=== PATIENT | female | born 1960 | race American Indian/Alaskan Native ===

== ENCOUNTER 2020-10-09 18:28 | Inpatient (IN) | payer BC ==
[2020-10-09] MEDS ORDERED: IPRATROPIUM 0.02% NEBU 2.5 ML IH ONE (21:48)
[2020-10-09] MEDS ORDERED: LEVALBUTEROL 0.63 MG/3 ML NEBU IH ONE (21:48)
[2020-10-09] MEDS ORDERED: methylPREDNISolone Sod Succinate 125 MG/2 ML INJ IV ONE (21:50)
[2020-10-09] MEDS ORDERED: MAGNESIUM SULFATE 2 GM/50 ML BAG IV ONE (21:50)
[2020-10-09] MEDS ORDERED: ACETAMINOPHEN 500 MG TAB PO ONE (21:50)
[2020-10-09 21:57] LABS: Basophils % (Auto) 0.1 % (0.0-1.8); Hematocrit 39.1 % (30.3-42.9); Hemoglobin 13.4 gm/dl (10.1-14.3); Lymphocytes # (Auto) 0.5 K/mm3 (1.2-5.4); Lymphocytes % (Auto) 15.8 % (13.4-35.0); Mean Corpuscular HGB Conc 34 % (30-34); Mean Corpuscular Volume 95 fl (79-97); Monocytes # (Auto) 0.4 K/mm3 (0.0-0.8); Platelet Count 219 K/mm3 (140-440); Red Blood Count 4.12 M/mm3 (3.65-5.03); Red Cell Distribution Width 13.4 % (13.2-15.2)
[2020-10-09 21:58] LABS: Alanine Aminotransferase 25 units/L (7-56); Albumin 4.1 g/dL (3.9-5); BUN/Creatinine Ratio 19; Blood Urea Nitrogen 15 mg/dL (7-17); Calcium 9.4 mg/dL (8.4-10.2); Hemolysis Index 7
--- NOTE | 2020-10-09 22:03 | XRay Report ---
CHEST 2 VIEWS INDICATION / CLINICAL INFORMATION: sob,wheezing and cough. COMPARISON: 07/11/2012 FINDINGS: SUPPORT DEVICES: None. HEART / MEDIASTINUM: Stable. LUNGS / PLEURA: Interval development of bilateral pleural effusions and associated lung base atelecta sis. No pneumothorax. ADDITIONAL FINDINGS: No significant additional findings. IMPRESSION: 1. Interval development of bilateral pleural effusions with associated compressive atelectasis. Signer Name: Angelito Back MD Signed: 10/09/2020 9:58 PM Workstation Name: [id number]
--- NOTE | 2020-10-09 23:00 | Emergency Department Report ---
ED Shortness of Breath HPI - General Chief Complaint: Dyspnea/Respdistress Stated Complaint: ASTHMA/COVID SYM Source: patient Mode of arrival: Ambulatory Limitations: No Limitations - History of Present Illness Initial Comments: Patient is a 60-year-old -[place] female with a history of asthma who presents to the ED with acute onset persistent shortness of breath with wheezing chest tightness for the last 3 days despite using her albuterol inhaler and nebulizers at home. Patient states that the cough is productive of mild yellowish-greenish phlegm and is worse at night when she lays down to sleep. Patient denies chest pain, dizziness, syncope, fever, chills, nausea and vomiting, diarrhea, sore throat, nasal and sinus congestion, back pain, abdominal pain, palpitations or change in vision. MD Complaint: shortness of breath, cough, "asthma attack" -: Sudden, days(s) (3) Severity: severe Pain Scale: 7 Quality: aching, other (chest tightness) Consistency: constant Improves With: nothing Worsens With: lying flat Known History Of: asthma Context: recent URI Associated Symptoms: denies other symptoms, cough, sputum production Treatments Prior to Arrival: bronchodilator - Related Data Home Oxygen Therapy: No Allergies Allergy/AdvReac Type Severity Reaction Status Date / Time No Known Allergies Allergy Unverified 10/09/20 20:29 ED Review of Systems ROS: Stated complaint: ASTHMA/COVID SYM Other details as noted in HPI Constitutional: denies: chills, fever Eyes: denies: eye pain, eye discharge, vision change ENT: denies: ear pain, throat pain, dental pain, hearing loss, congestion Respiratory: cough, shortness of breath, wheezing Cardiovascular: denies: chest pain, palpitations Endocrine: no symptoms reported Gastrointestinal: denies: abdominal pain, nausea, vomiting, diarrhea Genitourinary: denies: urgency, dysuria, discharge Musculoskeletal: denies: back pain, joint swelling, arthralgia Skin: denies: rash, lesions Neurological: denies: headache, weakness, paresthesias Psychiatric: denies: anxiety, depression Hematological/Lymphatic: denies: easy bleeding, easy bruising ED Past Medical Hx - Past Medical History Previous Medical History?: Yes Hx Asthma: Yes - Social History Smoking Status: Former Smoker Substance Use Type: None ED Physical Exam - General Limitations: No Limitations General appearance: alert, in no apparent distress - Head Head exam: Present: atraumatic, normocephalic, normal inspection - Eye Eye exam: Present: normal appearance, PERRL, EOMI Pupils: Present: normal accommodation - ENT ENT exam: Present: normal exam, normal orophraynx, mucous membranes moist, TM's normal bilaterally, normal external ear exam - Neck Neck exam: Present: normal inspection, full ROM - Respiratory Respiratory exam: Present: wheezes (Mildly diffuse coarse wheezes throughout). Absent: respiratory distress, rales, rhonchi, chest wall tenderness, accessory muscle use, decreased breath sounds, prolonged expiratory - Cardiovascular Cardiovascular Exam: Present: normal rhythm, tachycardia, normal heart sounds. Absent: systolic murmur, diastolic murmur, rubs, gallop - GI/Abdominal GI/Abdominal exam: Present: soft, normal bowel sounds. Absent: distended, tenderness, guarding, rebound, hyperactive bowel sounds, hypoactive bowel sounds, organomegaly - Extremities Exam Extremities exam: Present: normal inspection, full ROM, normal capillary refill - Back Exam Back exam: Present: normal inspection, full ROM. Absent: tenderness, CVA tenderness (R), CVA tenderness (L), muscle spasm, paraspinal tenderness, vertebral tenderness - Neurological Exam Neurological exam: Present: alert, oriented X3, CN II-XII intact, normal gait, reflexes normal - Psychiatric Psychiatric exam: Present: normal affect, normal mood - Skin Skin exam: Present: warm, dry, intact, normal color. Absent: rash ED Course Vital Signs 10/09/20 20:25 Temperature 99.1 F Pulse Rate 108 H Respiratory 18 Rate Blood Pressure 143/79 O2 Sat by Pulse 93 Oximetry ED Medical Decision Making - Lab Data Result diagrams: 10/09/20 21:10 10/10/20 01:47 - Radiology Data Findings [facility] [address] [place] [address] XRay Report Signed Patient: BERNARDA WILHELM MR #: [id number] : 1960 Acct:[id number] Age/Sex: 60 / F ADM Date: 10/09/20 Loc: ED Attending Dr: Ordering Physician: Gloria De La Torre MD Date of Service: 10/09/20 Procedure(s): XR chest routine 2V Accession Number(s): [id number] cc: Gloria De La Torre MD Fluoro Time In Minutes: CHEST 2 VIEWS INDICATION / CLINICAL INFORMATION: sob,wheezing and cough. COMPARISON: 07/11/2012 FINDINGS: SUPPORT DEVICES: None. HEART / MEDIASTINUM: Stable. LUNGS / PLEURA: Interval development of bilateral pleural effusions and associated lung base atelectasis. No pneumothorax. ADDITIONAL FINDINGS: No significant additional findings. IMPRESSION: 1. Interval development of bilateral pleural effusions with associated compressive atelectasis. Signer Name: Angelito Gaston MD Signed: 10/09/2020 9:58 PM Workstation Name: [id number] Transcribed By: CH Dictated By: ANGELITO GASTON Electronically Authenticated By: ANGELITO GASTON Signed Date/Time: 10/09/202157 DD/ 56 TD/TT: -- Findings [facility] [address] [place] [address] Cat Scan Report Signed Patient: BERNARDA WILHELM MR #: [id number] : 1960 Acct:[id number] Age/Sex: 60 / F ADM Date: 10/09/20 Loc: ED Attending Dr: Ordering Physician: AFSHAN SUTTON Date of Service: 10/10/20 Procedure(s): CT angio chest Accession Number(s): [id number] cc: AFSHAN SUTTON CTA CHEST WITH IV CONTRAST INDICATION: Shortness of breath TECHNIQUE: Axial CT images were obtained through the chest after injection of IV contrast. Coronal oblique 2- D reconstruction images were produced. 3 plane MIP reconstruction images were produced at an independent workstation. All CTs at this facility utilize dose reduction techniques including automated exposure control, iterative reconstruction and weight based dosing when appropriate to reduce patient radiation dose to as low as reasonable achievable. COMPARISON: Chest radiograph, 10/09/2020 FINDINGS: No filling defects are visualized within the central or segmental pulmonary arteries to suggest pulmonary embolism. The heart is normal in size. The thoracic aorta is normal in caliber. Evaluation of the lung parenchyma demonstrates faint bilateral interstitial prominence. No focal airspace consolidation or pleural effusion is visualized. Limited imaging of the upper abdomen demonstrates no evidence of acute abnormality. Bones and soft tissues: There are mild bony degenerative changes of the thoracic spine. Soft tissue structures appear normal. IMPRESSION: 1. No evidence of pulmonary embolism. 2. Faint bilateral interstitial thickening which is a nonspecific finding. This could be associated with atypical infectious process or mild pulmonary edema. Please correlate with patient's clinical circumstances. Signer Name: Geri Rosas MD Signed: 10/10/2020 2:32 AM Workstation Name: [id number] Transcribed By: EB Dictated By: Geri Rosas MD Electronically Authenticated By: Geri Rosas MD Signed Date/Time: 10/10/20231 DD/ 6 TD/TT: - Medical Decision Making This is a 60-year-old -[place] female with a history of asthma who presents to the ED with acute onset persistent shortness of breath with wheezing chest tightness for the last 3 days despite using her albuterol inhaler and nebulizers at home. Patient states that the cough is productive of mild yellowish-greenish phlegm and is worse at night when she lays down to sleep. In the ED, patient is alert and oriented x3 and is not in distress. Patient is 72 tachycardic and afebrile in triage. Patient was treated in the ED with Xopenex and ipratropium, also given Solu-Medrol 25 mg IV x1 and treated for pain. Chest x-ray shows interval development of bilateral pleural effusions with associated compressive atelectasis. No pneumothorax. Lab test results were reviewed and are all nonactionable. On reevaluation, patient's wheezing improved significantly but on ambulation in the ED, patient became hypoxic with oxygen saturation of 87% in room air. Patient was given more nebulizer treatment in the ED and more lab tests were ordered including lactic acid, COVID-[address] order panel [address] a CT of the chest. Patient also received empirical treatment with Rocephin 1 g IV and azithromycin [address] of the chest showed no evidence of pulmonary embolism. It however showed a faint bilateral interstitial thickening which is a nonspecific finding. This could be associated with atypical infectious process or mild pulmonary edema. Please correlate with patient's clinical circumstances. These findings were discussed with the hospitalist physician on-call who admitted the patient to the hospital for further evaluation and treatment. - Differential Diagnosis Pneumonia; Asthma; Bronchitis; URI; Covid-19; Hypoxia Critical Care Time: Yes Critical care time in (mins) excluding proc time.: 45 Critical care attestation.: If time is entered above; I have spent that time in minutes in the direct care of this critically ill patient, excluding procedure time. ED Disposition Clinical Impression: Shortness of breath, Acute bronchitis with asthma with acute exacerbation, Suspected COVID-19 virus infection, Hypoxia Community acquired pneumonia Qualifiers: Laterality: unspecified laterality Qualified Code(s): J18.9 - Pneumonia, unspecified organism Disposition: OP ADMIT IP TO THIS HOSP Is pt being admited?: Yes Does the pt Need Aspirin: Yes Condition: Stable Instructions: Acute Bronchitis (ED), Bacterial Pneumonia (ED) Referrals: PRIMARY CARE, [Primary Care Provider] - 3-5 Days Time of Disposition: 03:24 Print Language: SOUTH KOREAN
[2020-10-09] MEDS ORDERED: cefTRIAXone/NS 1 GM/50 ML 1 GM/50 ML BAG IV ONE (23:01)
[2020-10-09] MEDS ORDERED: AZITHROMYCIN 250 MG TAB PO ONE (23:01)
[2020-10-10] MEDS ORDERED: IPRATROPIUM 0.02% NEBU 2.5 ML IH ONE (01:12)
[2020-10-10] MEDS ORDERED: ALBUTEROL 2.5 MG/3 ML NEBU IH ONE (01:12)
[2020-10-10] MEDS ORDERED: dexAMETHasone 20 MG/5 ML VIAL IV ONE (01:14)
--- NOTE | 2020-10-10 02:37 | Cat Scan Report ---
CTA CHEST WITH IV CONTRAST INDICATION: Shortness of breath TECHNIQUE: Axial CT images were obtained through the chest after injection of IV contrast. Coronal oblique 2-D reconstruction images were produced. 3 plane MIP reconstruction images were produced at an [employer] workstation. All CTs at this facility utilize dose reduction techniques including automated expos ure control, iterative reconstruction and weight based dosing when appropriate to reduce patient radi ation dose to as low as reasonable achievable. COMPARISON: Chest radiograph, 10/09/2020 FINDINGS: No filling defects are visualized within the central or segmental pulmonary arteries to suggest pulmo nary embolism. The heart is normal in size. The thoracic aorta is normal in caliber. Evaluation of th e lung parenchyma demonstrates faint bilateral interstitial prominence. No focal airspace consolidati on or pleural effusion is visualized. Limited imaging of the upper abdomen demonstrates no evidence of acute abnormality. Bones and soft tissues: There are mild bony degenerative changes of the thoracic spine. Soft tissue s tructures appear normal. IMPRESSION: 1. No evidence of pulmonary embolism. 2. Faint bilateral interstitial thickening which is a nonspecific finding. This could be associated w ith atypical infectious process or mild pulmonary edema. Please correlate with patient's clinical cir cumstances. Signer Name: Geri Rosas MD Signed: 10/10/2020 2:32 AM Workstation Name: [id number]
[2020-10-10] MEDS ORDERED: ONDANSETRON 4 MG/2 ML INJ IV PRN (03:23)
[2020-10-10] MEDS ORDERED: ASPIRIN 81 MG TAB CHEW PO ONE (03:29)
[2020-10-10 05:13] LABS: C-Reactive Protein 4.2 mg/dL (0.00-1.30)
[2020-10-10] MEDS ORDERED: MAGNESIUM HYDROXIDE (MOM) ORAL LIQD UDC PO PRN (05:28)
[2020-10-10] MEDS ORDERED: MORPHINE 2 MG/1 ML INJ IV PRN (05:28)
--- NOTE | 2020-10-10 05:40 | History and Physical Report ---
History of Present Illness Date of examination: 10/10/20 Date of admission: 10/10/20 03:23 Chief complaint: Shortness of Breath History of present illness: 89-year-old -[place] female with known history of asthma presenting to the emergency room today complaining of shortness of breath which has been ongoing for about 3 days. She has also had some chest tightness but denies any pain. She has used albuterol inhaler nebulizing treatments at home without any significant improvement. Patient has had some cough which is productive for some mild yellowish to greenish sputum. She denies any sick contacts and no recent travel. She denies any contact with anyone with COVID-19. She denies any fever or chills, no nausea vomiting, no sore throat, no abdominal pain, no hematuria or dysuria. However she indicates she has had some changes in taste sensation and has been having some generalized body aches and pain. Work-up in the emergency room today CT angiogram of the chest reveals: Faint bilateral interstitial thickening which is a nonspecific finding. This could be associated with atypical infectious process or mild pulmonary edema. Patient admitted with asthma exacerbation and or possible underlying pneumonia. We will also rule out for COVID-19 Past History Past Medical History: other (Asthma) Past Surgical History: No surgical history Social history: smoking (Former Smoker) Family history: no significant family history Medications and Allergies Allergies Allergy/AdvReac Type Severity Reaction Status Date / Time No Known Allergies Allergy Unverified 10/09/20 20:29 Active Meds: Active Medications Acetaminophen (Acetaminophen 325 Mg Tab) 650 mg PO Q4H PRN PRN Reason: Pain MILD(1-3)/Fever >100.5/MARCIAL Albuterol/Ipratropium (Ipratropium/Albuterol Sulfate 3 Ml Ampul.Neb) 1 ampul IH Q6HRT [facility]ER[facility] Enoxaparin Sodium (Enoxaparin 40 Mg/0.4 Ml Inj) 40 mg SUB-Q QDAY@2200 BERTHA; Protocol Ceftriaxone Sodium (Rocephin/Ns 2 Gm/100 Ml) 2 gm in 100 mls @ 200 mls/hr IV Q24HR [facility]; Protocol Azithromycin 500 mg/ Sodium (Chloride) 250 mls @ 250 mls/hr IV Q24HR [facility]; Protocol Magnesium Hydroxide (Magnesium Hydroxide (Mom) Oral Liqd Udc) 30 ml PO Q4H PRN PRN Reason: Constipation Methylprednisolone Sodium Succinate (Methylprednisolone Sod Succinate 40 Mg/1 Ml Inj) 40 mg IV Q8HR [facility]ER[facility] Morphine Sulfate (Morphine 2 Mg/1 Ml Inj) 2 mg IV Q4H PRN PRN Reason: Pain, Moderate (4-6) Ondansetron HCl (Ondansetron 4 Mg/2 Ml Inj) 4 mg IV Q8H PRN PRN Reason: Nausea And Vomiting Sodium Chloride (Sodium Chloride 0.9% 10 Ml Flush Syringe) 10 ml IV BID BERTHA Sodium Chloride (Sodium Chloride 0.9% 10 Ml Flush Syringe) 10 ml IV PRN PRN PRN Reason: LINE FLUSH Sodium Chloride (Sodium Chloride 0.9% 10 Ml Flush Syringe) 10 ml IV BID BERTHA Sodium Chloride (Sodium Chloride 0.9% 10 Ml Flush Syringe) 10 ml IV PRN PRN PRN Reason: LINE FLUSH Review of Systems Constitutional: malaise, poor appetite, other (Loss of taste), no fever, no chills Ears, nose, mouth and throat: no nasal discharge, no swelling in mouth Cardiovascular: no chest pain, no palpitations Respiratory: cough, shortness of breath, wheezing Gastrointestinal: no abdominal pain, no nausea, no vomiting, no diarrhea Genitourinary Female: pelvic pain, no flank pain, no dysuria, no hematuria Musculoskeletal: no neck pain, no low back pain Integumentary: no rash, no pruritis Neurological: no headaches, no confusion Psychiatric: no anxiety, no depression Exam - Constitutional Vitals: Temp Pulse Resp BP Pulse Ox 99.1 F 108 H 18 143/79 93 10/09/20 20:25 10/09/20 20:25 10/09/20 20:25 10/09/20 20:25 10/09/20 20:25 General appearance: Present: no acute distress, well-nourished - EENT Eyes: Present: PERRL, EOM intact. Absent: scleral icterus ENT: hearing intact, clear oral mucosa, dentition normal - Neck Neck: Present: supple, normal ROM - Respiratory Respiratory effort: normal Respiratory: bilateral: wheezing - Cardiovascular Rhythm: regular Heart Sounds: Present: S1 & S2. Absent: gallop, systolic murmur, diastolic murmur, rub - Extremities Extremities: no ischemia, pulses intact, pulses symmetrical, No edema, Full ROM Peripheral Pulses: within normal limits - Abdominal General gastrointestinal: Present: soft, non-tender, non-distended, normal bowel sounds. Absent: mass - Integumentary Integumentary: Present: clear, warm, dry. Absent: rash - Musculoskeletal Musculoskeletal: strength equal bilaterally - Psychiatric Psychiatric: appropriate mood/affect, intact judgment & insight, memory intact, cooperative - Neurologic Neurologic: CNII-XII intact, no focal deficits, moves all extremities HEART Score - HEART Score Troponin: Troponin T < 0.010 ng/mL (0.00-0.029) 10/09/20 23:32 Results - Labs CBC & Chem 7: 10/09/20 21:10 10/10/20 01:47 Labs: Abnormal lab results 10/09/20 10/09/20 10/10/20 Range/Units 21:10 21:10 01:47 WBC 3.4 L (4.5-11.0) K/mm3 [place] % (Auto) 11.0 H (0.0-7.3) % Lymph # (Auto) 0.5 L (1.2-5.4) K/mm3 Seg Neutrophils % 73.1 H (40.0-70.0) % Glucose 107 H 115 H (65-100) mg/dL Ferritin (10.0-200.0) ng/mL Lactate Dehydrogenase 296 H (91-180) units/L C-Reactive Protein 4.20 H (0.00-1.30) mg/dL 10/10/20 Range/Units 01:47 WBC (4.5-11.0) K/mm3 [place]ina % (Auto) (0.0-7.3) % Lymph # (Auto) (1.2-5.4) K/mm3 Seg Neutrophils % (40.0-70.0) % Glucose (65-100) mg/dL Ferritin 844.9 H (10.0-200.0) ng/mL Lactate Dehydrogenase (91-180) units/L C-Reactive Protein (0.00-1.30) mg/dL Assessment and Plan - Patient Problems (1) Acute bronchitis with asthma with acute exacerbation Current Visit: Yes Status: Acute Plan to address problem: Patient placed on nebulizing treatments and IV steroid. We will keep O2 saturation greater or equal to 94%. (2) Community acquired pneumonia Current Visit: Yes Status: Acute Qualifiers: Laterality: unspecified laterality Qualified Code(s): J18.9 - Pneumonia, unspecified organism Plan to address problem: Patient placed on empiric IV antibiotics. We will appreciate infectious disease evaluation. (3) Hypoxia Current Visit: Yes Status: Acute Plan to address problem: Possibly secondary to the asthma exacerbation versus underlying pneumonia. (4) Suspected COVID-19 virus infection Current Visit: Yes Status: Acute Plan to address problem: Patient placed on isolation precautions. We await COVID-19 testing. (5) DVT prophylaxis Current Visit: Yes Status: Acute Plan to address problem: We will place on anticoagulation with subcutaneous Lovenox. (6) Full code status Current Visit: Yes Status: Acute
[2020-10-10] MEDS ORDERED: ASPIRIN 81 MG TAB CHEW ONE (06:51)
[2020-10-10] MEDS: methylPREDNISolone Sod Succinate 40 MG/1 ML INJ IV SCH ×3 (06:57→21:12)
[2020-10-10] MEDS: IPRATROPIUM/ALBUTEROL SULFATE 3 ML AMPUL.NEB IH SCH ×3 (09:01→20:56)
[2020-10-10] MEDS ORDERED: AZITHROMYCIN 500 MG in SODIUM CHLORIDE 0.9% 250ML 250 ML IV SCH (10:00)
[2020-10-10] MEDS: cefTRIAXone/NS 2 GM/100 ML 2 GM/100 ML BAG IV SCH (10:33)
--- NOTE | 2020-10-10 11:34 | Consultation ---
History of Present Illness - Reason for Consult Consult date: 10/10/20 Asthma exacerbation rule out COVID-19 Requesting physician: RAGHAV QUINTANILLA - History of Present Illness 60 years old female with history of asthma, admitted on secondary to 3-day history of chest tightness, cough with yellowish sputum.. Patient felt it was asthma exacerbation, she was using her inhaler without any improvement. Patient denies any exposure to COVID-19. On arrival, initial temperature 99.1, HR 108, RR 18, O2 sat 93%, BP 143/79. Initial WBC 3.4. D-dimer 230. Ferritin 944. Procalcitonin negative. CRP 4.2. CTA shows bilateral interstitial thickening, no pulmonary embolism. Review of Systems: reviewed ED and H&P notes. Deferred to prevent COVID-19 transmission. Past History Past Medical History: other (Asthma) Past Surgical History: No surgical history Social history: smoking (Former Smoker) Family history: no significant family history Medications and Allergies Allergies Allergy/AdvReac Type Severity Reaction Status Date / Time No Known Allergies Allergy Unverified 10/09/20 20:29 Active Meds: Active Medications Acetaminophen (Acetaminophen 325 Mg Tab) 650 mg PO Q4H PRN PRN Reason: Pain MILD(1-3)/Fever >100.5/MARCIAL Albuterol/Ipratropium (Ipratropium/Albuterol Sulfate 3 Ml Ampul.Neb) 1 ampul IH Q6HRT [facility] Last Admin: 10/10/20 09:01 Dose: 1 ampul Documented by: Enoxaparin Sodium (Enoxaparin 40 Mg/0.4 Ml Inj) 40 mg SUB-Q QDAY@2200 BERTHA; Protocol Ceftriaxone Sodium (Rocephin/Ns 2 Gm/100 Ml) 2 gm in 100 mls @ 200 mls/hr IV Q24HR [facility]ERTHA; Protocol Last Admin: 10/10/20 10:33 Dose: 200 mls/hr Documented by: Azithromycin 500 mg/ Sodium (Chloride) 250 mls @ 250 mls/hr IV Q24HR BERTHA; Protocol Stop: 10/13/20 10:59 Last Admin: 10/10/20 10:33 Dose: 250 mls/hr Documented by: Magnesium Hydroxide (Magnesium Hydroxide (Mom) Oral Liqd Udc) 30 ml PO Q4H PRN PRN Reason: Constipation Methylprednisolone Sodium Succinate (Methylprednisolone Sod Succinate 40 Mg/1 Ml Inj) 40 mg IV Q8HR [facility] Last Admin: 10/10/20 06:57 Dose: 40 mg Documented by: Morphine Sulfate (Morphine 2 Mg/1 Ml Inj) 2 mg IV Q4H PRN PRN Reason: Pain, Moderate (4-6) Ondansetron HCl (Ondansetron 4 Mg/2 Ml Inj) 4 mg IV Q8H PRN PRN Reason: Nausea And Vomiting Sodium Chloride (Sodium Chloride 0.9% 10 Ml Flush Syringe) 10 ml IV BID [facility] Last Admin: 10/10/20 06:59 Dose: 10 ml Documented by: Sodium Chloride (Sodium Chloride 0.9% 10 Ml Flush Syringe) 10 ml IV PRN PRN PRN Reason: LINE FLUSH Physical Examination - Physical Exam Narrative exam: Physical Exam: reviewed ED and hospitalist notes. Deferred to prevent COVID-19 transmission. - Constitutional Vitals: Vital Signs Temp Pulse Resp BP Pulse Ox 99.1 F 108 H 18 143/79 93 10/09/20 20:25 10/09/20 20:25 10/09/20 20:25 10/09/20 20:25 10/09/20 20:25 Temperature -Last 24 Hours Temperature 99.1 F Results - Labs CBC & Chem 7: 10/09/20 21:10 10/10/20 01:47 Labs: Abnormal lab results 10/09/20 10/09/20 10/10/20 Range/Units 21:10 21:10 01:47 WBC 3.4 L (4.5-11.0) K/mm3 [place] % (Auto) 11.0 H (0.0-7.3) % Lymph # (Auto) 0.5 L (1.2-5.4) K/mm3 Seg Neutrophils % 73.1 H (40.0-70.0) % Glucose 107 H 115 H (65-100) mg/dL Ferritin (10.0-200.0) ng/mL Lactate Dehydrogenase 296 H (91-180) units/L C-Reactive Protein 4.20 H (0.00-1.30) mg/dL 10/10/20 Range/Units 01:47 WBC (4.5-11.0) K/mm3 [place] % (Auto) (0.0-7.3) % Lymph # (Auto) (1.2-5.4) K/mm3 Seg Neutrophils % (40.0-70.0) % Glucose (65-100) mg/dL Ferritin 844.9 H (10.0-200.0) ng/mL Lactate Dehydrogenase (91-180) units/L C-Reactive Protein (0.00-1.30) mg/dL Assessment and Plan Cultures: Blood culture pending SARS CoV2 PCR pending Assessment: 60 years old female with history of asthma, admitted on secondary to 3-day history of chest tightness, cough with yellowish sputum: #Asthma exacerbation: Patient was using her inhaler without any improvement. #Early viral pneumonia: Should rule out COVID-19. Noted elevated ferritin, CRP and D-dimer. Procalcitonin normal. Mild hypoxia 93%. CTA shows no pulmonary embolism. Recommendations: Follow-up SARS-CoV-2 PCR Continue steroids Is further hypoxia and SARS-CoV-2 PCR positive, start remdesivir for 5 days Monitor inflammatory markers - ferritin, Ddimer, CRP, LDH Continue ceftriaxone and azithromycin Continue anticoagulation per System Protocol Prone positioning as possible All laboratory, cultures and imaging were reviewed. Will follow Hilary Lao MD Infectious Diseases [facility] M [phone] O [phone]
--- NOTE | 2020-10-10 16:00 | Progress Note ---
Assessment and Plan Assessment and plan: --COVID-19 virus infection/positive test Current Visit: Yes Status: Acute Plan to address problem: Droplet and contact isolation IV steroids, IV remdesivir, Inflammatory markers ID already evaluated, oxygen titrate O2 sats to more than 90% Resting room air and ambulatory room air O2 evaluation --Acute bronchitis with asthma with acute exacerbation Current Visit: Yes Status: Acute Plan to address problem: Patient placed on nebulizing treatments and IV steroid. We will keep O2 saturation greater or equal to 94%. --Community acquired pneumonia Current Visit: Yes Status: Acute Plan to address problem: Patient placed on empiric IV antibiotics. We will appreciate infectious disease evaluation. --Hypoxia; Current Visit: Yes Status: Acute Plan to address problem: Possibly secondary to the asthma exacerbation versus underlying pneumonia. --DVT prophylaxis Current Visit: Yes Status: Acute Plan to address problem: We will place on anticoagulation with subcutaneous Lovenox. --Full code status Current Visit: Yes Status: Acute --obesity; BMI 34.5 Patient needs weight reduction when medically stable We will closely monitor the patient and adjust the management as needed History Interval history: I have seen and examined the patient at the bedside Patient's chart and medications reviewed Patient is admitted as PUI in isolation [place] PCR positive Patient complains of generalized weakness Vital signs noted Hospitalist Physical - Constitutional Vitals: Temp Pulse Resp BP Pulse Ox 99.1 F 108 H 18 143/79 93 10/09/20 20:25 10/09/20 20:25 10/09/20 20:25 10/09/20 20:25 10/09/20 20:25 General appearance: Present: no acute distress, well-nourished - EENT Eyes: Present: PERRL, EOM intact - Neck Neck: Present: supple, normal ROM - Respiratory Respiratory effort: normal Respiratory: bilateral: diminished, rhonchi, negative: rales, wheezing - Cardiovascular Rhythm: regular Heart Sounds: Present: S1 & S2 - Extremities Extremities: no ischemia, No edema - Abdominal General gastrointestinal: soft, non-tender, non-distended, normal bowel sounds - Integumentary Integumentary: Present: clear, warm - Psychiatric Psychiatric: appropriate mood/affect, cooperative - Neurologic Neurologic: CNII-XII intact, moves all extremities HEART Score - HEART Score Troponin: Troponin T < 0.010 ng/mL (0.00-0.029) 10/09/20 23:32 Results - Labs CBC & Chem 7: 10/09/20 21:10 10/10/20 01:47 Labs: Laboratory Last Values WBC 3.4 K/mm3 (4.5-11.0) L 10/09/20 21:10 RBC 4.12 M/mm3 (3.65-5.03) 10/09/20 21:10 Hgb 13.4 gm/dl (10.1-14.3) 10/09/20 21:10 Hct 39.1 % (30.3-42.9) 10/09/20 21:10 MCV 95 fl (79-97) 10/09/20 21:10 MCH 32 pg (28-32) 10/09/20 21:10 MCHC 34 % (30-34) 10/09/20 21:10 RDW 13.4 % (13.2-15.2) 10/09/20 21:10 Plt Count 219 K/mm3 (140-440) 10/09/20 21:10 Lymph % (Auto) 15.8 % (13.4-35.0) 10/09/20 21:10 Taney % (Auto) 11.0 % (0.0-7.3) H 10/09/20 21:10 Eos % (Auto) 0.0 % (0.0-4.3) 10/09/20 21:10 Baso % (Auto) 0.1 % (0.0-1.8) 10/09/20 21:10 Lymph # (Auto) 0.5 K/mm3 (1.2-5.4) L 10/09/20 21:10 Taney # (Auto) 0.4 K/mm3 (0.0-0.8) 10/09/20 21:10 Eos # (Auto) 0.0 K/mm3 (0.0-0.4) 10/09/20 21:10 Baso # (Auto) 0.0 K/mm3 (0.0-0.1) 10/09/20 21:10 Seg Neutrophils % 73.1 % (40.0-70.0) H 10/09/20 21:10 Seg Neutrophils # 2.5 K/mm3 (1.8-7.7) 10/09/20 21:10 D-Dimer 230.21 ng/mlDDU (0-234) 10/10/20 01:47 Sodium 138 mmol/L (137-145) 10/09/20 21:10 Potassium 3.8 mmol/L (3.6-5.0) 10/09/20 21:10 Chloride 101.3 mmol/L (98-107) 10/09/20 21:10 Carbon Dioxide 28 mmol/L (22-30) 10/09/20 21:10 Anion Gap 13 mmol/L 10/09/20 21:10 BUN 15 mg/dL (7-17) 10/09/20 21:10 Creatinine 0.8 mg/dL (0.6-1.2) 10/09/20 21:10 Estimated GFR > 60 ml/min 10/09/20 21:10 BUN/Creatinine Ratio 19 % 10/09/20 21:10 Glucose 115 mg/dL (65-100) H 10/10/20 01:47 Lactic Acid 1.70 mmol/L (0.7-2.0) 10/09/20 23:32 Calcium 9.4 mg/dL (8.4-10.2) 10/09/20 21:10 Ferritin 844.9 ng/mL (10.0-200.0) H 10/10/20 01:47 Total Bilirubin 0.50 mg/dL (0.1-1.2) 10/09/20 21:10 AST 30 units/L (5-40) 10/09/20 21:10 ALT 25 units/L (7-56) 10/09/20 21:10 Alkaline Phosphatase 57 units/L (35-129) 10/09/20 21:10 Lactate Dehydrogenase 296 units/L (91-180) H 10/10/20 01:47 Troponin T < 0.010 ng/mL (0.00-0.029) 10/09/20 23:32 C-Reactive Protein 4.20 mg/dL (0.00-1.30) H 10/10/20 01:47 NT-Pro-B Natriuret Pep 41.99 pg/mL (0-900) 10/09/20 23:32 Total Protein 7.7 g/dL (6.3-8.2) 10/09/20 21:10 Albumin 4.1 g/dL (3.9-5) 10/09/20 21:10 Albumin/Globulin Ratio 1.1 % 10/09/20 21:10 Procalcitonin < 0.05 ng/mL (<0.15) 10/10/20 01:47 Coronavirus (PCR) Positive (Negative) A 10/10/20 08:40 Microbiology: Microbiology 10/09/20 23:32 Peripheral/Venous Blood Culture - Preliminary Culture in Progress 10/10/20 00:06 Peripheral/Venous Blood Culture - Preliminary Culture in Progress Watkins/IV: IV Catheter Type [Right INT / Saline Lock Antecubital] Active Medications - Current Medications Current Medications: Generic Name Dose Route Start Last Admin Trade Name Freq PRN Reason Stop Dose Admin Acetaminophen 650 mg 10/10/20 03:23 Acetaminophen 325 Mg Tab PO Q4H PRN Pain MILD(1-3)/Fever >100.5/MARCIAL Albuterol/Ipratropium 1 ampul 10/10/20 08:00 10/10/20 09:01 Ipratropium/Albuterol Sulfate 3 Ml Ampul.Neb IH 1 ampul Q6HRT BERTHA Administration Enoxaparin Sodium 40 mg 10/10/20 22:00 Enoxaparin 40 Mg/0.4 Ml Inj SUB-Q QDAY@2200 BERTHA Protocol Ceftriaxone Sodium 2 gm in 100 mls @ 200 mls/hr 10/10/20 10:00 10/10/20 10:33 Rocephin/Ns 2 Gm/100 Ml IV 200 mls/hr Q24HR BERTHA Administration Protocol Azithromycin 500 mg/ Sodium 250 mls @ 250 mls/hr 10/10/20 10:00 10/10/20 10:33 Chloride IV 10/13/20 10:59 250 mls/hr Q24HR BERTHA Administration Protocol REMDESIVIR 200 mg/ Sodium 250 mls @ 500 mls/hr 10/10/20 15:58 Chloride IV 10/10/20 16:27 ONCE ONE REMDESIVIR 100 mg/ Sodium 250 mls @ 500 mls/hr 10/11/20 21:00 Chloride IV 10/14/20 21:29 Q24HR@2100 BERTHA Magnesium Hydroxide 30 ml 10/10/20 05:28 Magnesium Hydroxide (Mom) Oral Liqd Udc PO Q4H PRN Constipation Methylprednisolone Sodium Succinate 40 mg 10/10/20 06:00 10/10/20 06:57 Methylprednisolone Sod Succinate 40 Mg/1 Ml Inj IV 40 mg Q8HR BERTHA Administration Morphine Sulfate 2 mg 10/10/20 05:28 Morphine 2 Mg/1 Ml Inj IV Q4H PRN Pain, Moderate (4-6) Ondansetron HCl 4 mg 10/10/20 03:23 Ondansetron 4 Mg/2 Ml Inj IV Q8H PRN Nausea And Vomiting Sodium Chloride 10 ml 10/10/20 04:00 10/10/20 06:59 Sodium Chloride 0.9% 10 Ml Flush Syringe IV 10 ml BID BERTHA Administration Sodium Chloride 10 ml 10/10/20 03:23 Sodium Chloride 0.9% 10 Ml Flush Syringe IV PRN PRN LINE FLUSH Sodium Chloride 50 ml 10/10/20 21:00 Sodium Chloride 0.9% 50 Ml Ivpb IV 10/14/20 21:01 Q24HR@2100 BERTHA
[2020-10-10] MEDS ORDERED: REMDESIVIR 100 MG VIAL IV ONE (17:00)
[2020-10-10] MEDS ORDERED: REMDESIVIR 200 MG in SODIUM CHLORIDE 0.9% 250ML 250 ML IV ONE (17:00)
[2020-10-10] MEDS: ENOXAPARIN 40 MG/0.4 ML INJ SUB-Q SCH (21:11)
[2020-10-10] MEDS: SODIUM CHLORIDE 0.9% 50 ML IVPB IV SCH (21:12)
[2020-10-11] MEDS: IPRATROPIUM/ALBUTEROL SULFATE 3 ML AMPUL.NEB IH SCH ×4 (03:52→20:00)
[2020-10-11] MEDS: methylPREDNISolone Sod Succinate 40 MG/1 ML INJ IV SCH ×3 (05:46→22:05)
[2020-10-11 06:49] LABS: Basophils % (Auto) 0.2 % (0.0-1.8); Hematocrit 38.9 % (30.3-42.9); Lymphocytes # (Auto) 0.4 K/mm3 (1.2-5.4); Lymphocytes % (Auto) 6.3 % (13.4-35.0); Mean Corpuscular HGB Conc 33 % (30-34); Mean Corpuscular Volume 94 fl (79-97); Monocytes # (Auto) 0.4 K/mm3 (0.0-0.8); Monocytes % (Auto) 5.3 % (0.0-7.3); Platelet Count 253 K/mm3 (140-440); Red Blood Count 4.13 M/mm3 (3.65-5.03); Red Cell Distribution Width 13.5 % (13.2-15.2)
[2020-10-11 06:52] LABS: INR 1.02 (0.87-1.13)
[2020-10-11 07:05] LABS: Blood Urea Nitrogen 26 mg/dL (7-17); Calcium 9.4 mg/dL (8.4-10.2); Hemolysis Index 9
[2020-10-11 07:19] LABS: BUN/Creatinine Ratio 37
--- NOTE | 2020-10-11 08:37 | Progress Note ---
Assessment and Plan Cultures: Blood culture gram-positive cocci 1 out of 4 bottles SARS CoV2 PCR positive Assessment: 60 years old female with history of asthma, admitted on secondary to 3-day history of chest tightness, cough with yellowish sputum: #Asthma exacerbation: Patient was using her inhaler without any improvement. #Severe COVID-19 pneumonia: Noted elevated ferritin, D-dimer normal. Proc alcitonin normal. Mild hypoxia 93%. CTA shows no pulmonary embolism. #Hypoxia: Patient currently on 2 L #Gram-positive cocci in blood cultures: Patient without fever or leukocytosis, this is likely a contaminant will monitor Recommendations: -Continue steroids total 10 days -Remdesivir started for 5 days -Monitor inflammatory markers - ferritin, Ddimer, CRP, LDH tomorrow -Stop ceftriaxone and azithromycin -procalcitonin<0.05 -Continue anticoagulation per System Protocol -Prone positioning as possible -Follow-up blood cultures All laboratory, cultures and imaging were reviewed. Will follow Hilary Lao MD Infectious Diseases [employer] [facility] ([facility]) M [phone] O [phone] Subjective Date of service: 10/11/20 Principal diagnosis: Rule out COVID-19 Interval history: Patient remains on 2 L nasal cannula, no desaturations overnight, no acute events. Objective - Exam Narrative Exam: Physical Exam: reviewed ED and hospitalist notes. Deferred to prevent COVID-19 transmission. - Constitutional Vitals: Vital Signs Temp Pulse Resp BP Pulse Ox 98.7 F 92 H 18 100/63 94 10/11/20 04:23 10/11/20 04:23 10/11/20 04:23 10/11/20 04:23 10/11/20 04:23 Temperature -Last 24 Hours Temperature 98.7 F Temperature 98.2 F - Labs CBC & Chem 7: 10/11/20 04:58 10/11/20 04:58 Labs: Abnormal lab results 10/10/20 10/11/20 10/11/20 Range/Units 08:40 04:58 04:58 Lymph % (Auto) 6.3 L (13.4-35.0) % Lymph # (Auto) 0.4 L (1.2-5.4) K/mm3 Seg Neutrophils % 88.2 H (40.0-70.0) % BUN 26 H (7-17) mg/dL Glucose 118 H (65-100) mg/dL Coronavirus (PCR) Positive A (Negative)
[2020-10-11] MEDS ORDERED: AZITHROMYCIN 250 MG TAB PO SCH (10:00)
[2020-10-11] MEDS: cefTRIAXone/NS 2 GM/100 ML 2 GM/100 ML BAG IV SCH (10:29)
--- NOTE | 2020-10-11 13:58 | Progress Note ---
Assessment and Plan Assessment and plan: --COVID-19 virus infection/positive test Current Visit: Yes Status: Acute Plan to address problem: Droplet and contact isolation IV steroids, IV remdesivir, Inflammatory markers Home oxygen evaluation Sleeping prone position as tolerated ID already evaluated, oxygen titrate O2 sats to more than 90% Resting room air and ambulatory room air O2 evaluation --Acute bronchitis with asthma with acute exacerbation Current Visit: Yes Status: Acute Plan to address problem: Patient placed on nebulizing treatments and IV steroid. We will keep O2 saturation greater or equal to 94% Cough medicine Robitussin as needed. --Community acquired pneumonia Current Visit: Yes Status: Acute Plan to address problem: Patient placed on empiric IV antibiotics. We will appreciate infectious disease evaluation. --Hypoxia; Current Visit: Yes Status: Acute Plan to address problem: Possibly secondary to the asthma exacerbation versus underlying pneumonia. --DVT prophylaxis Current Visit: Yes Status: Acute Plan to address problem: We will place on anticoagulation with subcutaneous Lovenox. --Full code status Current Visit: Yes Status: Acute --obesity; BMI 34.5 Patient needs weight reduction when medically stable Consults and recommendations noted and appreciated We will closely monitor the patient and adjust the management as needed Home oxygen evaluation Plan of care reviewed with the patient and her nurse History Interval history: I have seen and examined the patient at the bedside Patient's chart and medications reviewed Patient complains of cough, mild productive Also complains of generalized weakness Vital signs reviewed Hospitalist Physical - Constitutional Vitals: Temp Pulse Resp BP Pulse Ox 87.9 F L 94 H 16 89/57 91 10/11/20 13:10 10/11/20 13:34 10/11/20 13:34 10/11/20 13:10 10/11/20 13:10 General appearance: Present: no acute distress, well-nourished, obese - EENT Eyes: Present: PERRL, EOM intact - Neck Neck: Present: supple, normal ROM - Respiratory Respiratory effort: normal Respiratory: bilateral: diminished, rhonchi, negative: rales, wheezing - Cardiovascular Rhythm: regular Heart Sounds: Present: S1 & S2 - Extremities Extremities: no ischemia, No edema - Abdominal General gastrointestinal: soft, non-tender, non-distended, normal bowel sounds - Integumentary Integumentary: Present: clear, warm - Psychiatric Psychiatric: appropriate mood/affect, cooperative - Neurologic Neurologic: moves all extremities HEART Score - HEART Score Troponin: Troponin T < 0.010 ng/mL (0.00-0.029) 10/09/20 23:32 Results - Labs CBC & Chem 7: 10/11/20 04:58 10/11/20 04:58 Labs: Laboratory Last Values WBC 6.9 K/mm3 (4.5-11.0) 10/11/20 04:58 RBC 4.13 M/mm3 (3.65-5.03) 10/11/20 04:58 Hgb 13.0 gm/dl (10.1-14.3) 10/11/20 04:58 Hct 38.9 % (30.3-42.9) 10/11/20 04:58 MCV 94 fl (79-97) 10/11/20 04:58 MCH 32 pg (28-32) 10/11/20 04:58 MCHC 33 % (30-34) 10/11/20 04:58 RDW 13.5 % (13.2-15.2) 10/11/20 04:58 Plt Count 253 K/mm3 (140-440) 10/11/20 04:58 Lymph % (Auto) 6.3 % (13.4-35.0) L 10/11/20 04:58 Wheeler % (Auto) 5.3 % (0.0-7.3) 10/11/20 04:58 Eos % (Auto) 0.0 % (0.0-4.3) 10/11/20 04:58 Baso % (Auto) 0.2 % (0.0-1.8) 10/11/20 04:58 Lymph # (Auto) 0.4 K/mm3 (1.2-5.4) L 10/11/20 04:58 Wheeler # (Auto) 0.4 K/mm3 (0.0-0.8) 10/11/20 04:58 Eos # (Auto) 0.0 K/mm3 (0.0-0.4) 10/11/20 04:58 Baso # (Auto) 0.0 K/mm3 (0.0-0.1) 10/11/20 04:58 Seg Neutrophils % 88.2 % (40.0-70.0) H 10/11/20 04:58 Seg Neutrophils # 6.1 K/mm3 (1.8-7.7) 10/11/20 04:58 PT 13.3 Sec. (12.2-14.9) 10/11/20 04:58 INR 1.02 (0.87-1.13) 10/11/20 04:58 D-Dimer 230.21 ng/mlDDU (0-234) 10/10/20 01:47 Sodium 142 mmol/L (137-145) 10/11/20 04:58 Potassium 4.4 mmol/L (3.6-5.0) 10/11/20 04:58 Chloride 104.3 mmol/L (98-107) 10/11/20 04:58 Carbon Dioxide 24 mmol/L (22-30) 10/11/20 04:58 Anion Gap 18 mmol/L 10/11/20 04:58 BUN 26 mg/dL (7-17) H 10/11/20 04:58 Creatinine 0.7 mg/dL (0.6-1.2) 10/11/20 04:58 Estimated GFR > 60 ml/min 10/11/20 04:58 BUN/Creatinine Ratio 37 % 10/11/20 04:58 Glucose 118 mg/dL (65-100) H 10/11/20 04:58 Lactic Acid 1.70 mmol/L (0.7-2.0) 10/09/20 23:32 Calcium 9.4 mg/dL (8.4-10.2) 10/11/20 04:58 Ferritin 844.9 ng/mL (10.0-200.0) H 10/10/20 01:47 Total Bilirubin 0.50 mg/dL (0.1-1.2) 10/09/20 21:10 AST 30 units/L (5-40) 10/09/20 21:10 ALT 25 units/L (7-56) 10/09/20 21:10 Alkaline Phosphatase 57 units/L (35-129) 10/09/20 21:10 Lactate Dehydrogenase 296 units/L (91-180) H 10/10/20 01:47 Troponin T < 0.010 ng/mL (0.00-0.029) 10/09/20 23:32 C-Reactive Protein 4.20 mg/dL (0.00-1.30) H 10/10/20 01:47 NT-Pro-B Natriuret Pep 41.99 pg/mL (0-900) 10/09/20 23:32 Total Protein 7.7 g/dL (6.3-8.2) 10/09/20 21:10 Albumin 4.1 g/dL (3.9-5) 10/09/20 21:10 Albumin/Globulin Ratio 1.1 % 10/09/20 21:10 Procalcitonin < 0.05 ng/mL (<0.15) 10/10/20 01:47 Coronavirus (PCR) Positive (Negative) A 10/10/20 08:40 Microbiology: Microbiology 10/09/20 23:32 Peripheral/Venous Blood Culture - Preliminary 10/10/20 00:06 Peripheral/Venous Blood Culture - Preliminary NO GROWTH AFTER 24 HOURS Watkins/IV: Voiding Method Toilet IV Catheter Type [Right INT / Saline Lock Antecubital] Active Medications - Current Medications Current Medications: Generic Name Dose Route Start Last Admin Trade Name Freq PRN Reason Stop Dose Admin Acetaminophen 650 mg 10/10/20 03:23 Acetaminophen 325 Mg Tab PO Q4H PRN Pain MILD(1-3)/Fever >100.5/MARCIAL Albuterol/Ipratropium 1 ampul 10/10/20 08:00 10/11/20 13:34 Ipratropium/Albuterol Sulfate 3 Ml Ampul.Neb IH 1 ampul Q6HRT [facility] Administration Enoxaparin Sodium 40 mg 10/10/20 22:00 10/10/20 21:11 Enoxaparin 40 Mg/0.4 Ml Inj SUB-Q 40 mg QDAY@2200 [facility] Administration Protocol REMDESIVIR 100 mg/ Sodium 250 mls @ 500 mls/hr 10/11/20 21:00 Chloride IV 10/14/20 21:29 Q24HR@2100 [facility] Magnesium Hydroxide 30 ml 10/10/20 05:28 Magnesium Hydroxide (Mom) Oral Liqd Udc PO Q4H PRN Constipation Methylprednisolone Sodium Succinate 40 mg 10/10/20 06:00 10/11/20 05:46 Methylprednisolone Sod Succinate 40 Mg/1 Ml Inj IV 40 mg Q8HR BERTHA Administration Morphine Sulfate 2 mg 10/10/20 05:28 Morphine 2 Mg/1 Ml Inj IV Q4H PRN Pain, Moderate (4-6) Ondansetron HCl 4 mg 10/10/20 03:23 Ondansetron 4 Mg/2 Ml Inj IV Q8H PRN Nausea And Vomiting Sodium Chloride 10 ml 10/10/20 04:00 10/11/20 10:32 Sodium Chloride 0.9% 10 Ml Flush Syringe IV 10 ml BID BERTHA Administration Sodium Chloride 10 ml 10/10/20 03:23 Sodium Chloride 0.9% 10 Ml Flush Syringe IV PRN PRN LINE FLUSH Sodium Chloride 50 ml 10/10/20 17:00 10/10/20 21:12 Sodium Chloride 0.9% 50 Ml Ivpb IV 10/13/20 21:01 50 ml Q24HR@2100 BERTHA Administration
[2020-10-11] MEDS: guaiFENesin/CODEINE 100-10MG ORAL LIQD 5 ML PO PRN (18:03)
[2020-10-11] MEDS: ENOXAPARIN 40 MG/0.4 ML INJ SUB-Q SCH (22:04)
[2020-10-11] MEDS: SODIUM CHLORIDE 0.9% 50 ML IVPB IV SCH (22:06)
[2020-10-11] MEDS: REMDESIVIR 100 MG in SODIUM CHLORIDE 0.9% 250ML 250 ML IV SCH (22:07)
[2020-10-12] MEDS: guaiFENesin/CODEINE 100-10MG ORAL LIQD 5 ML PO PRN ×2 (01:00→09:40)
[2020-10-12] MEDS: methylPREDNISolone Sod Succinate 40 MG/1 ML INJ IV SCH ×3 (05:19→21:19)
[2020-10-12 06:27] LABS: Alanine Aminotransferase 54 units/L (7-56); Albumin 3.7 g/dL (3.9-5)
[2020-10-12 06:51] LABS: Bilirubin,Direct < 0.2 mg/dL (0-0.2)
[2020-10-12] MEDS: IPRATROPIUM/ALBUTEROL SULFATE 3 ML AMPUL.NEB IH SCH ×4 (08:19→20:03)
--- NOTE | 2020-10-12 09:10 | Progress Note ---
Assessment and Plan Cultures: Blood culture gram-positive cocci 1 out of 4 bottles SARS CoV2 PCR positive Assessment: 60 years old female with history of asthma, admitted on secondary to 3-day history of chest tightness, cough with yellowish sputum: #Asthma exacerbation: Patient was using her inhaler without any improvement. #Severe COVID-19 pneumonia: Noted elevated ferritin, worsening, D-dimer no rmal. Procalcitonin normal. Mild hypoxia 93%. CTA shows no pulmonary embolism. #Hypoxia: remains on 2 L #Gram-positive cocci in blood cultures: Patient without fever or leukocytosis, this is likely a contaminant will monitor Recommendations: -Continue steroids total 10 days -Remdesivir started for 5 days D2 of 5 -Monitor inflammatory markers - ferritin, Ddimer, CRP, LDH tomorrow -Continue anticoagulation per System Protocol -Prone positioning as possible -Follow-up blood cultures All laboratory, cultures and imaging were reviewed. Will follow Hilary Lao MD Infectious Diseases Business Services Assistant [facility] ([facility]) M [phone] O [phone] Subjective Principal diagnosis: Rule out COVID-19 Objective - Constitutional Vitals: Vital Signs Temp Pulse Resp BP Pulse Ox 98.1 F 93 H 16 115/69 95 10/12/20 06:01 10/12/20 08:19 10/12/20 08:19 10/12/20 06:01 10/12/20 08:20 Temperature -Last 24 Hours Temperature 98.1 F Temperature 98.7 F Temperature 98.3 F Temperature 87.9 F - Labs CBC & Chem 7: 10/11/20 04:58 10/11/20 04:58 Labs: Abnormal lab results 10/12/20 10/12/20 Range/Units 05:41 05:41 Ferritin 1055.0 H (10.0-200.0) ng/mL Lactate Dehydrogenase 278 H (91-180) units/L C-Reactive Protein 2.40 H (0.00-1.30) mg/dL Albumin 3.7 L (3.9-5) g/dL
[2020-10-12] MEDS ORDERED: FUROSEMIDE 40 MG/4 ML INJ IV ONE (14:00)
--- NOTE | 2020-10-12 18:45 | Progress Note ---
Assessment and Plan Assessment and plan: --COVID-19 virus infection/positive test Current Visit: Yes Status: Acute Plan to address problem: Droplet and contact isolation IV steroids for 10 days IV remdesivir 5 days Inflammatory markers Home oxygen evaluation Sleeping prone position as tolerated oxygen titrate O2 sats to more than 90% ID evaluation and recommendations noted and appreciated --Acute bronchitis with asthma with acute exacerbation Current Visit: Yes Status: Acute Plan to address problem: Patient placed on nebulizing treatments and IV steroid. We will keep O2 saturation greater or equal to 94% Cough medicine Robitussin as needed. --Community acquired pneumonia Current Visit: Yes Status: Acute Plan to address problem: Patient placed on empiric IV antibiotics. Antibiotics discontinued as procalcitonin is normal --Hypoxia; Current Visit: Yes Status: Acute Plan to address problem: Possibly secondary to the asthma exacerbation versus underlying pneumonia. --DVT prophylaxis Current Visit: Yes Status: Acute Plan to address problem: We will place on anticoagulation with subcutaneous Lovenox. --Full code status Current Visit: Yes Status: Acute --obesity; BMI 34.5 Patient needs weight reduction when medically stable Consults and recommendations noted and appreciated We will closely monitor the patient and adjust the management as needed Home oxygen evaluation Plan of care reviewed with the patient and her nurse History Interval history: I have seen the patient from a distance in her room Patient's chart and medications reviewed Patient complains of some congestion and cough Afebrile vital signs noted Hospitalist Physical - Constitutional Vitals: Temp Pulse Resp BP Pulse Ox 97.7 F 94 H 16 93/53 98 10/12/20 11:39 10/12/20 13:34 10/12/20 13:34 10/12/20 11:39 10/12/20 11:39 General appearance: Present: no acute distress, well-nourished, obese - EENT Eyes: Present: PERRL, EOM intact - Neck Neck: Present: supple, normal ROM - Respiratory Respiratory effort: normal Respiratory: bilateral: diminished, rhonchi, negative: rales, wheezing - Cardiovascular Rhythm: regular Heart Sounds: Present: S1 & S2 - Extremities Extremities: no ischemia, No edema - Abdominal General gastrointestinal: soft, non-tender, non-distended, normal bowel sounds - Integumentary Integumentary: Present: clear, warm - Psychiatric Psychiatric: appropriate mood/affect, cooperative - Neurologic Neurologic: moves all extremities HEART Score - HEART Score Troponin: Troponin T < 0.010 ng/mL (0.00-0.029) 10/09/20 23:32 Results - Labs CBC & Chem 7: 10/11/20 04:58 10/11/20 04:58 Labs: Laboratory Last Values WBC 6.9 K/mm3 (4.5-11.0) 10/11/20 04:58 RBC 4.13 M/mm3 (3.65-5.03) 10/11/20 04:58 Hgb 13.0 gm/dl (10.1-14.3) 10/11/20 04:58 Hct 38.9 % (30.3-42.9) 10/11/20 04:58 MCV 94 fl (79-97) 10/11/20 04:58 MCH 32 pg (28-32) 10/11/20 04:58 MCHC 33 % (30-34) 10/11/20 04:58 RDW 13.5 % (13.2-15.2) 10/11/20 04:58 Plt Count 253 K/mm3 (140-440) 10/11/20 04:58 Lymph % (Auto) 6.3 % (13.4-35.0) L 10/11/20 04:58 [place] % (Auto) 5.3 % (0.0-7.3) 10/11/20 04:58 Eos % (Auto) 0.0 % (0.0-4.3) 10/11/20 04:58 Baso % (Auto) 0.2 % (0.0-1.8) 10/11/20 04:58 Lymph # (Auto) 0.4 K/mm3 (1.2-5.4) L 10/11/20 04:58 [place] # (Auto) 0.4 K/mm3 (0.0-0.8) 10/11/20 04:58 Eos # (Auto) 0.0 K/mm3 (0.0-0.4) 10/11/20 04:58 Baso # (Auto) 0.0 K/mm3 (0.0-0.1) 10/11/20 04:58 Seg Neutrophils % 88.2 % (40.0-70.0) H 10/11/20 04:58 Seg Neutrophils # 6.1 K/mm3 (1.8-7.7) 10/11/20 04:58 PT 13.3 Sec. (12.2-14.9) 10/11/20 04:58 INR 1.02 (0.87-1.13) 10/11/20 04:58 D-Dimer 135.00 ng/mlDDU (0-234) 10/12/20 05:41 Sodium 142 mmol/L (137-145) 10/11/20 04:58 Potassium 4.4 mmol/L (3.6-5.0) 10/11/20 04:58 Chloride 104.3 mmol/L (98-107) 10/11/20 04:58 Carbon Dioxide 24 mmol/L (22-30) 10/11/20 04:58 Anion Gap 18 mmol/L 10/11/20 04:58 BUN 26 mg/dL (7-17) H 10/11/20 04:58 Creatinine 0.7 mg/dL (0.6-1.2) 10/11/20 04:58 Estimated GFR > 60 ml/min 10/11/20 04:58 BUN/Creatinine Ratio 37 % 10/11/20 04:58 Glucose 118 mg/dL (65-100) H 10/11/20 04:58 Lactic Acid 1.70 mmol/L (0.7-2.0) 10/09/20 23:32 Calcium 9.4 mg/dL (8.4-10.2) 10/11/20 04:58 Ferritin 1055.0 ng/mL (10.0-200.0) H 10/12/20 05:41 Total Bilirubin 0.30 mg/dL (0.1-1.2) 10/12/20 05:41 Direct Bilirubin < 0.2 mg/dL (0-0.2) 10/12/20 05:41 Indirect Bilirubin 0.1 mg/dL 10/12/20 05:41 AST 36 units/L (5-40) 10/12/20 05:41 ALT 54 units/L (7-56) 10/12/20 05:41 Alkaline Phosphatase 55 units/L (35-129) 10/12/20 05:41 Lactate Dehydrogenase 278 units/L (91-180) H 10/12/20 05:41 Troponin T < 0.010 ng/mL (0.00-0.029) 10/09/20 23:32 C-Reactive Protein 2.40 mg/dL (0.00-1.30) H 10/12/20 05:41 NT-Pro-B Natriuret Pep 41.99 pg/mL (0-900) 10/09/20 23:32 Total Protein 6.9 g/dL (6.3-8.2) 10/12/20 05:41 Albumin 3.7 g/dL (3.9-5) L 10/12/20 05:41 Albumin/Globulin Ratio 1.2 % 10/12/20 05:41 Procalcitonin < 0.05 ng/mL (<0.15) 10/10/20 01:47 Coronavirus (PCR) Positive (Negative) A 10/10/20 08:40 Microbiology: Microbiology 10/09/20 23:32 Peripheral/Venous Blood Culture - Preliminary Coag Negative Staphylococcus 10/10/20 00:06 Peripheral/Venous Blood Culture - Preliminary NO GROWTH AFTER 48 HOURS Watkins/IV: Voiding Method Toilet IV Catheter Type [Right INT / Saline Lock Antecubital] Active Medications - Current Medications Current Medications: Generic Name Dose Route Start Last Admin Trade Name Freq PRN Reason Stop Dose Admin Acetaminophen 650 mg 10/10/20 03:23 Acetaminophen 325 Mg Tab PO Q4H PRN Pain MILD(1-3)/Fever >100.5/MARCIAL Albuterol/Ipratropium 1 ampul 10/10/20 08:00 10/12/20 13:34 Ipratropium/Albuterol Sulfate 3 Ml Ampul.Neb IH 1 ampul Q6HRT [facility] Administration Enoxaparin Sodium 40 mg 10/10/20 22:00 10/11/20 22:04 Enoxaparin 40 Mg/0.4 Ml Inj SUB-Q 40 mg QDAY@2200 [facility] Administration Protocol REMDESIVIR 100 mg/ Sodium 250 mls @ 500 mls/hr 10/11/20 21:00 10/11/20 22:07 Chloride IV 10/14/20 21:29 500 mls/hr Q24HR@2100 BERTHA Administration Magnesium Hydroxide 30 ml 10/10/20 05:28 Magnesium Hydroxide (Mom) Oral Liqd Udc PO Q4H PRN Constipation Methylprednisolone Sodium Succinate 40 mg 10/10/20 06:00 10/12/20 13:29 Methylprednisolone Sod Succinate 40 Mg/1 Ml Inj IV 40 mg Q8HR BERTHA Administration Morphine Sulfate 2 mg 10/10/20 05:28 Morphine 2 Mg/1 Ml Inj IV Q4H PRN Pain, Moderate (4-6) Ondansetron HCl 4 mg 10/10/20 03:23 Ondansetron 4 Mg/2 Ml Inj IV Q8H PRN Nausea And Vomiting Pseudoephedrine/Acetam/Chlorphenir 10 ml 10/11/20 17:42 10/12/20 09:40 Guaifenesin/Codeine 100-10mg Oral Liqd 5 Ml PO 10 ml Q4H PRN Administration Cough Sodium Chloride 10 ml 10/10/20 04:00 10/12/20 09:36 Sodium Chloride 0.9% 10 Ml Flush Syringe IV 10 ml BID BERTHA Administration Sodium Chloride 10 ml 10/10/20 03:23 Sodium Chloride 0.9% 10 Ml Flush Syringe IV PRN PRN LINE FLUSH Sodium Chloride 50 ml 10/10/20 17:00 10/11/20 22:06 Sodium Chloride 0.9% 50 Ml Ivpb IV 10/13/20 21:01 50 ml Q24HR@2100 BERTHA Administration
[2020-10-12] MEDS: ENOXAPARIN 40 MG/0.4 ML INJ SUB-Q SCH (21:20)
[2020-10-12] MEDS: REMDESIVIR 100 MG in SODIUM CHLORIDE 0.9% 250ML 250 ML IV SCH (21:21)
[2020-10-12] MEDS: SODIUM CHLORIDE 0.9% 50 ML IVPB IV SCH (21:21)
[2020-10-12] MEDS: ACETAMINOPHEN 325 MG TAB PO PRN (23:14)
[2020-10-13] MEDS: methylPREDNISolone Sod Succinate 40 MG/1 ML INJ IV SCH ×3 (05:34→22:11)
[2020-10-13] MEDS: IPRATROPIUM/ALBUTEROL SULFATE 3 ML AMPUL.NEB IH SCH ×4 (09:15→20:29)
[2020-10-13] MEDS ORDERED: FUROSEMIDE 40 MG/4 ML INJ IV ONE (13:00)
--- NOTE | 2020-10-13 13:11 | Progress Note ---
Assessment and Plan Cultures: Blood culture 10/09/2020 gram-positive cocci 1 out of 4 bottles SARS CoV2 PCR positive Blood culture 10/13/2020 no growth today Assessment: 60 years old female with history of asthma, admitted on secondary to 3-day history of chest tightness, cough with yellowish sputum: #Asthma exacerbation: Patient was using her inhaler without any improvement. #Severe COVID-19 pneumonia: Noted elevated ferritin, worsening, D-dimer normal. Procalcitonin normal. Mild hypoxia 93%. CTA shows no pulmonary embolism. D-dimer remains normal, ferritin worsening. #Hypoxia: remains on 2 L #Gram-positive cocci in blood cultures: Patient without fever or leukocytosis, this is likely a contaminant will monitor Recommendations: -Continue steroids total 10 days -Remdesivir started for 5 days D3 of 5 -Monitor inflammatory markers - ferritin, Ddimer, CRP, LDH -Continue anticoagulation per System Protocol -Prone positioning as possible Dr. Tilley rounding this weekend All laboratory, cultures and imaging were reviewed. Will follow Hilary Lao MD Infectious Diseases [place] [facility] M [phone] O [phone] Subjective Date of service: 10/13/20 Principal diagnosis: Rule out COVID-19 Interval history: Patient remains on 2 L nasal cannula, O2 sats over 96%, no fever. Objective - Exam Narrative Exam: Physical Exam: reviewed ED and hospitalist notes. Deferred to prevent COVID-19 transmission. - Constitutional Vitals: Vital Signs Temp Pulse Resp BP Pulse Ox 98.4 F 84 18 100/73 95 10/13/20 11:49 10/13/20 11:49 10/13/20 11:49 10/13/20 11:49 10/13/20 11:49 Temperature -Last 24 Hours Temperature 98.4 F Temperature 97.6 F Temperature 99.3 F - Labs CBC & Chem 7: 10/11/20 04:58 10/11/20 04:58
[2020-10-13] MEDS: guaiFENesin/CODEINE 100-10MG ORAL LIQD 5 ML PO PRN (13:26)
[2020-10-13] MEDS: CETIRIZINE 10 MG TAB PO SCH (13:27)
--- NOTE | 2020-10-13 17:48 | Progress Note ---
Assessment and Plan Assessment and plan: --COVID-19 virus infection/positive test Current Visit: Yes Status: Acute Plan to address problem: I will continue droplet and contact isolation Continue IV steroids for total 10 days Continue IV remdesivir 3 of 5 days We will follow inflammatory markers Home oxygen evaluation Anticoagulation per protocol Sleeping prone position as tolerated Patient is on 2 L oxygen titrate O2 sats to more than 90% SARS CoV2 PCR positive, no indication for convalescent plasma ID commendations noted and appreciated --Severe Covid pneumonia Current Visit: Yes Status: Acute Plan to address problem: Patient placed on empiric IV antibiotics. Antibiotics discontinued as procalcitonin is normal Continue supportive care with oxygen --Acute asthma with acute exacerbation With acute bronchitis Current Visit: Yes Status: Acute Plan to address problem: Patient placed on nebulizing treatments and IV steroid. We will keep O2 saturation greater or equal to 90% I will start Claritin, 1 dose of IV Lasix Supportive care --Hypoxia; requiring 2 L of nasal cannula oxygen Current Visit: Yes Status: Acute Plan to address problem: Multifactorial, asthma exacerbation As well as severe Covid pneumonia I will evaluate for home oxygen --DVT prophylaxis Current Visit: Yes Status: Acute Plan to address problem: I will continue subcu Lovenox Ambulate as tolerated --Full code status Current Visit: Yes Status: Acute --obesity; BMI 34.5 Advised weight reduction when medically stable We will closely monitor the patient and adjust the management as needed Disposition; possible discharge in 1 to 2 days if stable And cleared by ID Plan of care reviewed with the patient and her nurse History Interval history: I have seen and examined the patient at the bedside Isolation precautions strict PPE protocols followed Patient complains of some congestion, shortness of breath and cough In mild distress Vital signs noted Hospitalist Physical - Constitutional Vitals: Temp Pulse Resp BP Pulse Ox 98.4 F 84 18 100/73 95 10/13/20 11:49 10/13/20 11:49 10/13/20 11:49 10/13/20 11:49 10/13/20 11:49 General appearance: Present: mild distress, well-nourished, obese - EENT Eyes: Present: PERRL, EOM intact - Neck Neck: Present: supple, normal ROM - Respiratory Respiratory effort: normal Respiratory: bilateral: diminished, rhonchi, negative: rales, wheezing - Cardiovascular Rhythm: regular Heart Sounds: Present: S1 & S2 - Extremities Extremities: no ischemia, No edema - Abdominal General gastrointestinal: soft, non-tender, non-distended, normal bowel sounds - Integumentary Integumentary: Present: clear, warm - Psychiatric Psychiatric: appropriate mood/affect, cooperative - Neurologic Neurologic: moves all extremities HEART Score - HEART Score Troponin: Troponin T < 0.010 ng/mL (0.00-0.029) 10/09/20 23:32 Results - Labs CBC & Chem 7: 10/11/20 04:58 10/11/20 04:58 Labs: Laboratory Last Values WBC 6.9 K/mm3 (4.5-11.0) 10/11/20 04:58 RBC 4.13 M/mm3 (3.65-5.03) 10/11/20 04:58 Hgb 13.0 gm/dl (10.1-14.3) 10/11/20 04:58 Hct 38.9 % (30.3-42.9) 10/11/20 04:58 MCV 94 fl (79-97) 10/11/20 04:58 MCH 32 pg (28-32) 10/11/20 04:58 MCHC 33 % (30-34) 10/11/20 04:58 RDW 13.5 % (13.2-15.2) 10/11/20 04:58 Plt Count 253 K/mm3 (140-440) 10/11/20 04:58 Lymph % (Auto) 6.3 % (13.4-35.0) L 10/11/20 04:58 [place] % (Auto) 5.3 % (0.0-7.3) 10/11/20 04:58 Eos % (Auto) 0.0 % (0.0-4.3) 10/11/20 04:58 Baso % (Auto) 0.2 % (0.0-1.8) 10/11/20 04:58 Lymph # (Auto) 0.4 K/mm3 (1.2-5.4) L 10/11/20 04:58 [place] # (Auto) 0.4 K/mm3 (0.0-0.8) 10/11/20 04:58 Eos # (Auto) 0.0 K/mm3 (0.0-0.4) 10/11/20 04:58 Baso # (Auto) 0.0 K/mm3 (0.0-0.1) 10/11/20 04:58 Seg Neutrophils % 88.2 % (40.0-70.0) H 10/11/20 04:58 Seg Neutrophils # 6.1 K/mm3 (1.8-7.7) 10/11/20 04:58 PT 13.3 Sec. (12.2-14.9) 10/11/20 04:58 INR 1.02 (0.87-1.13) 10/11/20 04:58 D-Dimer 135.00 ng/mlDDU (0-234) 10/12/20 05:41 Sodium 142 mmol/L (137-145) 10/11/20 04:58 Potassium 4.4 mmol/L (3.6-5.0) 10/11/20 04:58 Chloride 104.3 mmol/L (98-107) 10/11/20 04:58 Carbon Dioxide 24 mmol/L (22-30) 10/11/20 04:58 Anion Gap 18 mmol/L 10/11/20 04:58 BUN 26 mg/dL (7-17) H 10/11/20 04:58 Creatinine 0.7 mg/dL (0.6-1.2) 10/11/20 04:58 Estimated GFR > 60 ml/min 10/11/20 04:58 BUN/Creatinine Ratio 37 % 10/11/20 04:58 Glucose 118 mg/dL (65-100) H 10/11/20 04:58 Lactic Acid 1.70 mmol/L (0.7-2.0) 10/09/20 23:32 Calcium 9.4 mg/dL (8.4-10.2) 10/11/20 04:58 Ferritin 1055.0 ng/mL (10.0-200.0) H 10/12/20 05:41 Total Bilirubin 0.30 mg/dL (0.1-1.2) 10/12/20 05:41 Direct Bilirubin < 0.2 mg/dL (0-0.2) 10/12/20 05:41 Indirect Bilirubin 0.1 mg/dL 10/12/20 05:41 AST 36 units/L (5-40) 10/12/20 05:41 ALT 54 units/L (7-56) 10/12/20 05:41 Alkaline Phosphatase 55 units/L (35-129) 10/12/20 05:41 Lactate Dehydrogenase 278 units/L (91-180) H 10/12/20 05:41 Troponin T < 0.010 ng/mL (0.00-0.029) 10/09/20 23:32 C-Reactive Protein 2.40 mg/dL (0.00-1.30) H 10/12/20 05:41 NT-Pro-B Natriuret Pep 41.99 pg/mL (0-900) 10/09/20 23:32 Total Protein 6.9 g/dL (6.3-8.2) 10/12/20 05:41 Albumin 3.7 g/dL (3.9-5) L 10/12/20 05:41 Albumin/Globulin Ratio 1.2 % 10/12/20 05:41 Procalcitonin < 0.05 ng/mL (<0.15) 10/10/20 01:47 Coronavirus (PCR) Positive (Negative) A 10/10/20 08:40 Microbiology: Microbiology 10/13/20 11:08 Peripheral/Venous Blood Culture - Preliminary Culture in Progress 10/13/20 10:51 Peripheral/Venous Blood Culture - Preliminary Culture in Progress 10/10/20 00:06 Peripheral/Venous Blood Culture - Preliminary NO GROWTH AFTER 72 HOURS 10/09/20 23:32 Peripheral/Venous Blood Culture - Preliminary Coag Negative Staphylococcus Watkins/IV: Voiding Method Toilet IV Catheter Type [Right INT / Saline Lock Antecubital] Active Medications - Current Medications Current Medications: Generic Name Dose Route Start Last Admin Trade Name Freq PRN Reason Stop Dose Admin Acetaminophen 650 mg 10/10/20 03:23 10/12/20 23:14 Acetaminophen 325 Mg Tab PO 650 mg Q4H PRN Administration Pain MILD(1-3)/Fever >100.5/MARCIAL Albuterol/Ipratropium 1 ampul 10/10/20 08:00 10/13/20 09:42 Ipratropium/Albuterol Sulfate 3 Ml Ampul.Neb IH Not Given Q6HRT BERTHA Cetirizine HCl 10 mg 10/13/20 13:00 10/13/20 13:27 Cetirizine 10 Mg Tab PO 10 mg QDAY BERTHA Administration Enoxaparin Sodium 40 mg 10/10/20 22:00 10/12/20 21:20 Enoxaparin 40 Mg/0.4 Ml Inj SUB-Q 40 mg QDAY@2200 BERTHA Administration Protocol REMDESIVIR 100 mg/ Sodium 250 mls @ 500 mls/hr 10/11/20 21:00 10/12/20 21:21 Chloride IV 10/14/20 21:29 500 mls/hr Q24HR@2100 BERTHA Administration Magnesium Hydroxide 30 ml 10/10/20 05:28 Magnesium Hydroxide (Mom) Oral Liqd Udc PO Q4H PRN Constipation Methylprednisolone Sodium Succinate 40 mg 10/10/20 06:00 10/13/20 13:26 Methylprednisolone Sod Succinate 40 Mg/1 Ml Inj IV 10/19/20 22:01 40 mg Q8HR BERTHA Administration Morphine Sulfate 2 mg 10/10/20 05:28 Morphine 2 Mg/1 Ml Inj IV Q4H PRN Pain, Moderate (4-6) Ondansetron HCl 4 mg 10/10/20 03:23 Ondansetron 4 Mg/2 Ml Inj IV Q8H PRN Nausea And Vomiting Pseudoephedrine/Acetam/Chlorphenir 10 ml 10/11/20 17:42 10/13/20 13:26 Guaifenesin/Codeine 100-10mg Oral Liqd 5 Ml PO 10 ml Q4H PRN Administration Cough Sodium Chloride 10 ml 10/10/20 04:00 10/13/20 09:34 Sodium Chloride 0.9% 10 Ml Flush Syringe IV 10 ml BID BERTHA Administration Sodium Chloride 10 ml 10/10/20 03:23 Sodium Chloride 0.9% 10 Ml Flush Syringe IV PRN PRN LINE FLUSH Sodium Chloride 50 ml 10/10/20 17:00 10/12/20 21:21 Sodium Chloride 0.9% 50 Ml Ivpb IV 10/13/20 21:01 50 ml Q24HR@2100 BERTHA Administration
[2020-10-13] MEDS: ACETAMINOPHEN 325 MG TAB PO PRN (18:17)
[2020-10-13] MEDS: ENOXAPARIN 40 MG/0.4 ML INJ SUB-Q SCH (22:10)
[2020-10-13] MEDS: SODIUM CHLORIDE 0.9% 50 ML IVPB IV SCH (22:11)
[2020-10-13] MEDS: REMDESIVIR 100 MG in SODIUM CHLORIDE 0.9% 250ML 250 ML IV SCH (22:11)
[2020-10-14] MEDS: guaiFENesin/CODEINE 100-10MG ORAL LIQD 5 ML PO PRN (00:40)
[2020-10-14] MEDS ORDERED: ALBUTEROL 2.5 MG/3 ML NEBU IH PRN (03:26)
[2020-10-14] MEDS: IPRATROPIUM/ALBUTEROL SULFATE 3 ML AMPUL.NEB IH SCH ×4 (03:31→20:25)
[2020-10-14] MEDS: methylPREDNISolone Sod Succinate 40 MG/1 ML INJ IV SCH ×3 (05:10→21:16)
[2020-10-14] MEDS: CETIRIZINE 10 MG TAB PO SCH (10:34)
--- NOTE | 2020-10-14 12:53 | Progress Note ---
Assessment and Plan Assessment and plan: --COVID-19 virus infection/positive test Current Visit: Yes Status: Acute Plan to address problem: I will continue droplet and contact isolation Continue IV steroids for total 10 days Continue IV remdesivir 3 of 5 days We will follow inflammatory markers Home oxygen evaluation Anticoagulation per protocol Sleeping prone position as tolerated Patient is on 2 L oxygen titrate O2 sats to more than 90% SARS CoV2 PCR positive, no indication for convalescent plasma ID commendations noted and appreciated --Severe Covid pneumonia Current Visit: Yes Status: Acute Plan to address problem: Patient placed on empiric IV antibiotics. Antibiotics discontinued as procalcitonin is normal Continue supportive care with oxygen --Acute asthma with acute exacerbation With acute bronchitis Current Visit: Yes Status: Acute Plan to address problem: Patient placed on nebulizing treatments and IV steroid. We will keep O2 saturation greater or equal to 90% I will start Claritin, 1 dose of IV Lasix Supportive care --Hypoxia; requiring 2 L of nasal cannula oxygen Current Visit: Yes Status: Acute Plan to address problem: Multifactorial, asthma exacerbation As well as severe Covid pneumonia I will evaluate for home oxygen --DVT prophylaxis Current Visit: Yes Status: Acute Plan to address problem: I will continue subcu Lovenox Ambulate as tolerated --Full code status Current Visit: Yes Status: Acute --obesity; BMI 34.5 Advised weight reduction when medically stable We will closely monitor the patient and adjust the management as needed Disposition; possible discharge in 1 to 2 days if stable And cleared by ID Plan of care reviewed with the patient and her nurse 60-year-old obese -Turkish female patient with significant past medical history of bronchial asthma was admitted with worsening shortness of breath cough and yellowish sputum, admitted as PUI placed in isolation for COVID-19 test was positive, evaluated by ID Patient is being treated with IV steroids, remdesivir oxygen and following inflammatory markers, empiric antibiotics discontinued due to normal levels of procalcitonin. Patient continues to have chest congestion and cough ID is following, home oxygen evaluation, possible discharge in 1 to 2 days if stable History Interval history: I seen and examined the patient at the bedside this morning Isolation precautions, PPE protocols strictly followed Patient feels slightly better Continues to have chest congestion and cough Vital signs reviewed Hospitalist Physical - Constitutional Vitals: Temp Pulse Resp BP Pulse Ox 97.7 F 84 20 102/55 96 10/14/20 04:16 10/14/20 09:29 10/14/20 09:29 10/14/20 04:16 10/14/20 09:29 General appearance: Present: mild distress, well-nourished, obese, other (Congestion and cough) - EENT Eyes: Present: PERRL, EOM intact - Neck Neck: Present: supple, normal ROM - Respiratory Respiratory effort: normal Respiratory: bilateral: diminished, rhonchi, negative: rales, wheezing - Cardiovascular Rhythm: regular Heart Sounds: Present: S1 & S2 - Extremities Extremities: no ischemia, No edema - Abdominal General gastrointestinal: soft, non-tender, non-distended, normal bowel sounds - Integumentary Integumentary: Present: clear, warm - Psychiatric Psychiatric: appropriate mood/affect, cooperative - Neurologic Neurologic: moves all extremities HEART Score - HEART Score Troponin: Troponin T < 0.010 ng/mL (0.00-0.029) 10/09/20 23:32 Results - Labs CBC & Chem 7: 10/11/20 04:58 10/11/20 04:58 Labs: Laboratory Last Values WBC 6.9 K/mm3 (4.5-11.0) 10/11/20 04:58 RBC 4.13 M/mm3 (3.65-5.03) 10/11/20 04:58 Hgb 13.0 gm/dl (10.1-14.3) 10/11/20 04:58 Hct 38.9 % (30.3-42.9) 10/11/20 04:58 MCV 94 fl (79-97) 10/11/20 04:58 MCH 32 pg (28-32) 10/11/20 04:58 MCHC 33 % (30-34) 10/11/20 04:58 RDW 13.5 % (13.2-15.2) 10/11/20 04:58 Plt Count 253 K/mm3 (140-440) 10/11/20 04:58 Lymph % (Auto) 6.3 % (13.4-35.0) L 10/11/20 04:58 [place] % (Auto) 5.3 % (0.0-7.3) 10/11/20 04:58 Eos % (Auto) 0.0 % (0.0-4.3) 10/11/20 04:58 Baso % (Auto) 0.2 % (0.0-1.8) 10/11/20 04:58 Lymph # (Auto) 0.4 K/mm3 (1.2-5.4) L 10/11/20 04:58 [place] # (Auto) 0.4 K/mm3 (0.0-0.8) 10/11/20 04:58 Eos # (Auto) 0.0 K/mm3 (0.0-0.4) 10/11/20 04:58 Baso # (Auto) 0.0 K/mm3 (0.0-0.1) 10/11/20 04:58 Seg Neutrophils % 88.2 % (40.0-70.0) H 10/11/20 04:58 Seg Neutrophils # 6.1 K/mm3 (1.8-7.7) 10/11/20 04:58 PT 13.3 Sec. (12.2-14.9) 10/11/20 04:58 INR 1.02 (0.87-1.13) 10/11/20 04:58 D-Dimer 135.00 ng/mlDDU (0-234) 10/12/20 05:41 Sodium 142 mmol/L (137-145) 10/11/20 04:58 Potassium 4.4 mmol/L (3.6-5.0) 10/11/20 04:58 Chloride 104.3 mmol/L (98-107) 10/11/20 04:58 Carbon Dioxide 24 mmol/L (22-30) 10/11/20 04:58 Anion Gap 18 mmol/L 10/11/20 04:58 BUN 26 mg/dL (7-17) H 10/11/20 04:58 Creatinine 0.7 mg/dL (0.6-1.2) 10/11/20 04:58 Estimated GFR > 60 ml/min 10/11/20 04:58 BUN/Creatinine Ratio 37 % 10/11/20 04:58 Glucose 118 mg/dL (65-100) H 10/11/20 04:58 Lactic Acid 1.70 mmol/L (0.7-2.0) 10/09/20 23:32 Calcium 9.4 mg/dL (8.4-10.2) 10/11/20 04:58 Ferritin 1055.0 ng/mL (10.0-200.0) H 10/12/20 05:41 Total Bilirubin 0.30 mg/dL (0.1-1.2) 10/12/20 05:41 Direct Bilirubin < 0.2 mg/dL (0-0.2) 10/12/20 05:41 Indirect Bilirubin 0.1 mg/dL 10/12/20 05:41 AST 36 units/L (5-40) 10/12/20 05:41 ALT 54 units/L (7-56) 10/12/20 05:41 Alkaline Phosphatase 55 units/L (35-129) 10/12/20 05:41 Lactate Dehydrogenase 278 units/L (91-180) H 10/12/20 05:41 Troponin T < 0.010 ng/mL (0.00-0.029) 10/09/20 23:32 C-Reactive Protein 2.40 mg/dL (0.00-1.30) H 10/12/20 05:41 NT-Pro-B Natriuret Pep 41.99 pg/mL (0-900) 10/09/20 23:32 Total Protein 6.9 g/dL (6.3-8.2) 10/12/20 05:41 Albumin 3.7 g/dL (3.9-5) L 10/12/20 05:41 Albumin/Globulin Ratio 1.2 % 10/12/20 05:41 Procalcitonin < 0.05 ng/mL (<0.15) 10/10/20 01:47 Coronavirus (PCR) Positive (Negative) A 10/10/20 08:40 Microbiology: Microbiology 10/13/20 11:08 Peripheral/Venous Blood Culture - Preliminary NO GROWTH AFTER 24 HOURS 10/13/20 10:51 Peripheral/Venous Blood Culture - Preliminary NO GROWTH AFTER 24 HOURS 10/10/20 00:06 Peripheral/Venous Blood Culture - Preliminary NO GROWTH AFTER 4 DAYS Watkins/IV: Voiding Method Toilet IV Catheter Type [Right INT / Saline Lock Antecubital] Active Medications - Current Medications Current Medications: Generic Name Dose Route Start Last Admin Trade Name Freq PRN Reason Stop Dose Admin Acetaminophen 650 mg 10/10/20 03:23 10/13/20 18:17 Acetaminophen 325 Mg Tab PO 650 mg Q4H PRN Administration Pain MILD(1-3)/Fever >100.5/MARCIAL Albuterol 2.5 mg 10/14/20 03:26 Albuterol 2.5 Mg/3 Ml Nebu IH Q4HRT PRN Shortness Of Breath Albuterol/Ipratropium 1 ampul 10/14/20 08:00 10/14/20 09:29 Ipratropium/Albuterol Sulfate 3 Ml Ampul.Neb IH 1 ampul TIDRT BERTHA Administration Cetirizine HCl 10 mg 10/13/20 13:00 10/14/20 10:34 Cetirizine 10 Mg Tab PO 10 mg QDAY BERTHA Administration Enoxaparin Sodium 40 mg 10/10/20 22:00 10/13/20 22:10 Enoxaparin 40 Mg/0.4 Ml Inj SUB-Q 40 mg QDAY@2200 BERTHA Administration Protocol REMDESIVIR 100 mg/ Sodium 250 mls @ 500 mls/hr 10/11/20 21:00 10/13/20 22:11 Chloride IV 10/14/20 21:29 500 mls/hr Q24HR@2100 BERTHA Administration Magnesium Hydroxide 30 ml 10/10/20 05:28 Magnesium Hydroxide (Mom) Oral Liqd Udc PO Q4H PRN Constipation Methylprednisolone Sodium Succinate 40 mg 10/10/20 06:00 10/14/20 05:10 Methylprednisolone Sod Succinate 40 Mg/1 Ml Inj IV 10/19/20 22:01 40 mg Q8HR BERTHA Administration Morphine Sulfate 2 mg 10/10/20 05:28 Morphine 2 Mg/1 Ml Inj IV Q4H PRN Pain, Moderate (4-6) Ondansetron HCl 4 mg 10/10/20 03:23 Ondansetron 4 Mg/2 Ml Inj IV Q8H PRN Nausea And Vomiting Pseudoephedrine/Acetam/Chlorphenir 10 ml 10/11/20 17:42 10/14/20 00:40 Guaifenesin/Codeine 100-10mg Oral Liqd 5 Ml PO 10 ml Q4H PRN Administration Cough Sodium Chloride 10 ml 10/10/20 04:00 10/14/20 10:34 Sodium Chloride 0.9% 10 Ml Flush Syringe IV 10 ml BID BERTHA Administration Sodium Chloride 10 ml 10/10/20 03:23 Sodium Chloride 0.9% 10 Ml Flush Syringe IV PRN PRN LINE FLUSH
[2020-10-14] MEDS: REMDESIVIR 100 MG in SODIUM CHLORIDE 0.9% 250ML 250 ML IV SCH (21:15)
[2020-10-14] MEDS: ENOXAPARIN 40 MG/0.4 ML INJ SUB-Q SCH (21:15)
[2020-10-14] MEDS ORDERED: SODIUM CHLORIDE 0.9% 50 ML ONE (21:20)
[2020-10-14] MEDS: SODIUM CHLORIDE 0.9% 50 ML IVPB IV SCH (21:27)
[2020-10-14] MEDS: guaiFENesin ER 600 MG TAB PO SCH (22:10)
[2020-10-14] MEDS: ACETAMINOPHEN 325 MG TAB PO PRN (22:10)
[2020-10-15] MEDS: methylPREDNISolone Sod Succinate 40 MG/1 ML INJ IV SCH ×3 (05:28→21:57)
[2020-10-15 07:32] LABS: C-Reactive Protein 0.4 mg/dL (0.00-1.30)
[2020-10-15] MEDS: IPRATROPIUM/ALBUTEROL SULFATE 3 ML AMPUL.NEB IH SCH ×3 (08:58→20:07)
[2020-10-15] MEDS: CETIRIZINE 10 MG TAB PO SCH (10:34)
[2020-10-15] MEDS: guaiFENesin ER 600 MG TAB PO SCH ×2 (10:34→21:57)
--- NOTE | 2020-10-15 12:24 | Progress Note ---
Subjective Date of service: 10/15/20 Principal diagnosis: Rule out COVID-19 Interval history: Assessment and plan: --COVID-19 virus infection/positive test Current Visit: Yes Status: Acute Plan to address problem: Continue IV steroids for total 10 days Continue IV remdesivir 4 of 5 days follow inflammatory markers Home oxygen evaluation Anticoagulation per protocol Sleeping prone position as tolerated Patient is on 2 L oxygen titrate O2 sats to more than 90% SARS CoV2 PCR positive, no indication for convalescent plasma ID note reviewed --Severe Covid pneumonia Current Visit: Yes Status: Acute Plan to address problem: Continue supportive care with oxygen Procalcitonin normal No indication for IV antibiotics --Acute asthma with acute exacerbation With acute bronchitis Current Visit: Yes Status: Acute Plan to address problem: Patient placed on nebulizing treatments and IV steroid. We will keep O2 saturation greater or equal to 90% Supportive care --Hypoxia; requiring 2 L of nasal cannula oxygen Current Visit: Yes Status: Acute Plan to address problem: Multifactorial, asthma exacerbation As well as severe Covid pneumonia 6-minute walk prior to discharge --DVT prophylaxis Current Visit: Yes Status: Acute Plan to address problem: continue subcu Lovenox Ambulate as tolerated --Full code status Current Visit: Yes Status: Acute --obesity; BMI 34.5 Advised weight reduction when medically stable We will closely monitor the patient and adjust the management as needed Disposition; possible discharge in 1 to 2 days if stable And cleared by ID Plan of care reviewed with the patient and her nurse 60-year-old obese -Swazi female patient with significant past medical history of bronchial asthma was admitted with worsening shortness of breath cough and yellowish sputum, admitted as PUI placed in isolation for COVID-19 test was positive, evaluated by ID Patient is being treated with IV steroids, remdesivir oxygen and following inflammatory markers, empiric antibiotics discontinued due to normal levels of procalcitonin. Patient continues to have chest congestion and cough ID is following, home oxygen evaluation, possible discharge in 1 to 2 days if stable 10/15 patient is alert and oriented, offers no complaints, denies fever, chills, shortness of breath or cough ID note reviewed, lab results reviewed History Interval history: I seen and examined the patient at the bedside this morning Isolation precautions, PPE protocols strictly followed Patient feels slightly better Continues to have chest congestion and cough Vital signs reviewed Objective - Constitutional Vitals: Vital Signs - 12hr 10/15/20 10/15/20 08:00 08:58 Pulse Rate [ 82 Bilateral] Respiratory 16 Rate Respiratory 20 Rate [Bilateral ] General appearance: Present: no acute distress, well-nourished - EENT Eyes: PERRL, EOM intact ENT: hearing intact, clear oral mucosa - Neck Neck: supple, normal ROM - Respiratory Respiratory effort: normal Respiratory: bilateral: CTA - Breasts Breasts: deferred - Cardiovascular Rhythm: regular Heart Sounds: Present: S1 & S2 Extremities: No edema - Gastrointestinal General gastrointestinal: Present: soft, non-tender Rectal Exam: deferred - Genitourinary Female genitourinary: deferred - Integumentary Integumentary: clear - Musculoskeletal Musculoskeletal: strength equal bilaterally - Neurologic Neurologic: no focal deficits - Labs CBC & Chem 7: 10/11/20 04:58 10/11/20 04:58 Labs: Abnormal lab results 10/15/20 10/15/20 Range/Units 05:39 05:39 Ferritin 1081.0 H (10.0-200.0) ng/mL Lactate Dehydrogenase 224 H (91-180) units/L HEART Score - HEART Score Troponin: Troponin T < 0.010 ng/mL (0.00-0.029) 10/09/20 23:32
[2020-10-15] MEDS: ENOXAPARIN 40 MG/0.4 ML INJ SUB-Q SCH (21:58)
[2020-10-16] MEDS: methylPREDNISolone Sod Succinate 40 MG/1 ML INJ IV SCH ×3 (05:18→21:26)
--- NOTE | 2020-10-16 08:46 | Progress Note ---
Assessment and Plan Assessment and plan: --COVID-19 virus infection/positive test Current Visit: Yes Status: Acute Plan to address problem: I will continue droplet and contact isolation Continue IV steroids for total 10 days Continue IV remdesivir 3 of 5 days We will follow inflammatory markers Home oxygen evaluation Anticoagulation per protocol Sleeping prone position as tolerated Patient is on 2 L oxygen titrate O2 sats to more than 90% SARS CoV2 PCR positive, no indication for convalescent plasma ID commendations noted and appreciated --Severe Covid pneumonia Current Visit: Yes Status: Acute Plan to address problem: Patient placed on empiric IV antibiotics. Antibiotics discontinued as procalcitonin is normal Continue supportive care with oxygen --Acute asthma with acute exacerbation With acute bronchitis Current Visit: Yes Status: Acute Plan to address problem: Patient placed on nebulizing treatments and IV steroid. We will keep O2 saturation greater or equal to 90% I will start Claritin, 1 dose of IV Lasix Supportive care --Hypoxia; requiring 2 L of nasal cannula oxygen Current Visit: Yes Status: Acute Plan to address problem: Multifactorial, asthma exacerbation As well as severe Covid pneumonia I will evaluate for home oxygen --DVT prophylaxis Current Visit: Yes Status: Acute Plan to address problem: I will continue subcu Lovenox Ambulate as tolerated --Full code status Current Visit: Yes Status: Acute --obesity; BMI 34.5 Advised weight reduction when medically stable We will closely monitor the patient and adjust the management as needed Disposition; possible discharge in 1 to 2 days if stable And cleared by ID 10/16/2020. Remdesivir has been completed. Inflammatory markers have s tabilized with the exception of elevated ferritin. D-dimer normal. Change Solu-Medrol to dexamethasone 6 mg for 4 more days. Anticipate discharge in a.m. History Interval history: 60-year-old obese -[place] female patient with significant past medical history of bronchial asthma was admitted with worsening shortness of breath cough and yellowish sputum, admitted as PUI placed in isolation for COVID-19 test was positive, evaluated by ID Patient is being treated with IV steroids, remdesivir oxygen and following inflammatory markers, empiric antibiotics discontinued due to normal levels of procalcitonin. Patient continues to have chest congestion and cough ID is following, home oxygen evaluation, No new issues overnight. Hospitalist Physical - Constitutional Vitals: Temp Pulse Resp BP Pulse Ox 97.7 F 58 L 20 111/65 96 10/16/20 04:50 10/16/20 04:50 10/16/20 04:50 10/16/20 04:50 10/16/20 04:50 General appearance: Present: no acute distress, well-nourished - EENT Eyes: Present: PERRL, EOM intact ENT: hearing intact, clear oral mucosa, dentition normal - Neck Neck: Present: supple, normal ROM - Respiratory Respiratory effort: normal Respiratory: bilateral: CTA - Cardiovascular Rhythm: regular Heart Sounds: Present: S1 & S2. Absent: gallop, rub - Extremities Extremities: no ischemia, No edema, Full ROM - Abdominal General gastrointestinal: soft, non-tender, non-distended, normal bowel sounds - Integumentary Integumentary: Present: clear, warm, dry - Neurologic Neurologic: CNII-XII intact, moves all extremities HEART Score - HEART Score Troponin: Troponin T < 0.010 ng/mL (0.00-0.029) 10/09/20 23:32 Results - Labs CBC & Chem 7: 10/11/20 04:58 10/11/20 04:58 Labs: Laboratory Last Values WBC 6.9 K/mm3 (4.5-11.0) 10/11/20 04:58 RBC 4.13 M/mm3 (3.65-5.03) 10/11/20 04:58 Hgb 13.0 gm/dl (10.1-14.3) 10/11/20 04:58 Hct 38.9 % (30.3-42.9) 10/11/20 04:58 MCV 94 fl (79-97) 10/11/20 04:58 MCH 32 pg (28-32) 10/11/20 04:58 MCHC 33 % (30-34) 10/11/20 04:58 RDW 13.5 % (13.2-15.2) 10/11/20 04:58 Plt Count 253 K/mm3 (140-440) 10/11/20 04:58 Lymph % (Auto) 6.3 % (13.4-35.0) L 10/11/20 04:58 [place] % (Auto) 5.3 % (0.0-7.3) 10/11/20 04:58 Eos % (Auto) 0.0 % (0.0-4.3) 10/11/20 04:58 Baso % (Auto) 0.2 % (0.0-1.8) 10/11/20 04:58 Lymph # (Auto) 0.4 K/mm3 (1.2-5.4) L 10/11/20 04:58 [place] # (Auto) 0.4 K/mm3 (0.0-0.8) 10/11/20 04:58 Eos # (Auto) 0.0 K/mm3 (0.0-0.4) 10/11/20 04:58 Baso # (Auto) 0.0 K/mm3 (0.0-0.1) 10/11/20 04:58 Seg Neutrophils % 88.2 % (40.0-70.0) H 10/11/20 04:58 Seg Neutrophils # 6.1 K/mm3 (1.8-7.7) 10/11/20 04:58 PT 13.3 Sec. (12.2-14.9) 10/11/20 04:58 INR 1.02 (0.87-1.13) 10/11/20 04:58 D-Dimer 173.32 ng/mlDDU (0-234) 10/15/20 05:39 Sodium 142 mmol/L (137-145) 10/11/20 04:58 Potassium 4.4 mmol/L (3.6-5.0) 10/11/20 04:58 Chloride 104.3 mmol/L (98-107) 10/11/20 04:58 Carbon Dioxide 24 mmol/L (22-30) 10/11/20 04:58 Anion Gap 18 mmol/L 10/11/20 04:58 BUN 26 mg/dL (7-17) H 10/11/20 04:58 Creatinine 0.7 mg/dL (0.6-1.2) 10/11/20 04:58 Estimated GFR > 60 ml/min 10/11/20 04:58 BUN/Creatinine Ratio 37 % 10/11/20 04:58 Glucose 118 mg/dL (65-100) H 10/11/20 04:58 Lactic Acid 1.70 mmol/L (0.7-2.0) 10/09/20 23:32 Calcium 9.4 mg/dL (8.4-10.2) 10/11/20 04:58 Ferritin 1081.0 ng/mL (10.0-200.0) H 10/15/20 05:39 Total Bilirubin 0.30 mg/dL (0.1-1.2) 10/12/20 05:41 Direct Bilirubin < 0.2 mg/dL (0-0.2) 10/12/20 05:41 Indirect Bilirubin 0.1 mg/dL 10/12/20 05:41 AST 36 units/L (5-40) 10/12/20 05:41 ALT 54 units/L (7-56) 10/12/20 05:41 Alkaline Phosphatase 55 units/L (35-129) 10/12/20 05:41 Lactate Dehydrogenase 224 units/L (91-180) H 10/15/20 05:39 Troponin T < 0.010 ng/mL (0.00-0.029) 10/09/20 23:32 C-Reactive Protein 0.40 mg/dL (0.00-1.30) 10/15/20 05:39 NT-Pro-B Natriuret Pep 41.99 pg/mL (0-900) 10/09/20 23:32 Total Protein 6.9 g/dL (6.3-8.2) 10/12/20 05:41 Albumin 3.7 g/dL (3.9-5) L 10/12/20 05:41 Albumin/Globulin Ratio 1.2 % 10/12/20 05:41 Procalcitonin < 0.05 ng/mL (<0.15) 10/10/20 01:47 Coronavirus (PCR) Positive (Negative) A 10/10/20 08:40 Microbiology: Microbiology 10/13/20 11:08 Peripheral/Venous Blood Culture - Preliminary NO GROWTH AFTER 48 HOURS 10/13/20 10:51 Peripheral/Venous Blood Culture - Preliminary NO GROWTH AFTER 48 HOURS Watkins/IV: Voiding Method Toilet IV Catheter Type [Right INT / Saline Lock Antecubital] Active Medications - Current Medications Current Medications: Generic Name Dose Route Start Last Admin Trade Name Freq PRN Reason Stop Dose Admin Acetaminophen 650 mg 10/10/20 03:23 10/14/20 22:10 Acetaminophen 325 Mg Tab PO 650 mg Q4H PRN Administration Pain MILD(1-3)/Fever >100.5/MARCIAL Albuterol 2.5 mg 10/14/20 03:26 Albuterol 2.5 Mg/3 Ml Nebu IH Q4HRT PRN Shortness Of Breath Albuterol/Ipratropium 1 ampul 10/14/20 08:00 10/15/20 20:07 Ipratropium/Albuterol Sulfate 3 Ml Ampul.Neb IH 1 ampul TIDRT BERTHA Administration Cetirizine HCl 10 mg 10/13/20 13:00 10/15/20 10:34 Cetirizine 10 Mg Tab PO 10 mg QDAY BERTHA Administration Enoxaparin Sodium 40 mg 10/10/20 22:00 10/15/20 21:58 Enoxaparin 40 Mg/0.4 Ml Inj SUB-Q 40 mg QDAY@2200 BERTHA Administration Protocol Guaifenesin 600 mg 10/14/20 22:00 10/15/20 21:57 Guaifenesin Er 600 Mg Tab PO 600 mg BID BERTHA Administration Magnesium Hydroxide 30 ml 10/10/20 05:28 Magnesium Hydroxide (Mom) Oral Liqd Udc PO Q4H PRN Constipation Methylprednisolone Sodium Succinate 40 mg 10/10/20 06:00 10/16/20 05:18 Methylprednisolone Sod Succinate 40 Mg/1 Ml Inj IV 10/19/20 22:01 40 mg Q8HR BERTHA Administration Morphine Sulfate 2 mg 10/10/20 05:28 Morphine 2 Mg/1 Ml Inj IV Q4H PRN Pain, Moderate (4-6) Ondansetron HCl 4 mg 10/10/20 03:23 Ondansetron 4 Mg/2 Ml Inj IV Q8H PRN Nausea And Vomiting Sodium Chloride 10 ml 10/10/20 04:00 10/15/20 21:58 Sodium Chloride 0.9% 10 Ml Flush Syringe IV 10 ml BID BERTHA Administration Sodium Chloride 10 ml 10/10/20 03:23 Sodium Chloride 0.9% 10 Ml Flush Syringe IV PRN PRN LINE FLUSH
[2020-10-16] MEDS: IPRATROPIUM/ALBUTEROL SULFATE 3 ML AMPUL.NEB IH SCH ×3 (09:12→20:33)
[2020-10-16] MEDS: CETIRIZINE 10 MG TAB PO SCH (09:15)
[2020-10-16] MEDS: guaiFENesin ER 600 MG TAB PO SCH ×2 (09:16→21:26)
--- NOTE | 2020-10-16 11:50 | Discharge Summary ---
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 The patient was admitted with diagnosis of acute asthma exacerbation, severe COVID-19 pneumonia and acute hypoxic respiratory failure. The patient was seen by ID in consultation and treated with steroids and remdesivir. Inflammatory markers were monitored and stabilized. Patient was treated with prone positioning. Blood cultures revealed gram-positive cocci which was felt likely to be a contaminant. Patient was seen by ID in consultation. Patient had a walk fit test and and was found to have desaturation to 88% with exercise. Therefore, patient will be discharged home with oxygen and dexamethasone completion. Dedicated discharge time 35 minutes Disposition: [id number] TO HOME OR SELFCARE Time spent for discharge: 35 - Discharge Diagnoses (1) Acute respiratory failure with hypoxia Status: Acute (2) COVID-19 Status: Acute (3) Sepsis Status: Acute (4) Acute bronchitis with asthma with acute exacerbation Status: Acute (5) Community acquired pneumonia Status: Acute Qualifiers: Laterality: unspecified laterality Qualified Code(s): J18.9 - Pneumonia, unspecified organism Core Measure Documentation - Palliative Care Palliative Care/ Comfort Measures: Not Applicable - Core Measures Any of the following diagnoses?: none Exam - Constitutional Vitals: Temp Pulse Resp BP Pulse Ox 97.7 F 56 L 18 111/65 97 10/16/20 04:50 10/16/20 08:00 10/16/20 08:00 10/16/20 04:50 10/16/20 09:14 General appearance: Present: no acute distress, well-nourished - EENT Eyes: Present: PERRL ENT: hearing intact, clear oral mucosa - Neck Neck: Present: supple, normal ROM - Respiratory Respiratory effort: normal Respiratory: bilateral: CTA - Cardiovascular Heart Sounds: Present: S1 & S2. Absent: rub, click - Extremities Extremities: pulses symmetrical, No edema Peripheral Pulses: within normal limits - Abdominal General gastrointestinal: Present: soft, non-tender, non-distended, normal bowel sounds Female genitourinary: Present: normal - Integumentary Integumentary: Present: clear, warm, dry - Musculoskeletal Musculoskeletal: gait normal, strength equal bilaterally - Psychiatric Psychiatric: appropriate mood/affect, intact judgment & insight - Neurologic Neurologic: CNII-XII intact, moves all extremities Plan Activity: no restrictions Weight Bearing Status: Weight Bear as Tolerated Diet: regular Special Instructions: home oxygen via Follow up with: PRIMARY CAREMD [Primary Care Provider] - 3-5 Days SARA YEAGER MD [Staff Physician] - 7 Days Prescriptions: Dexamethasone [Decadron] 6 mg PO DAILY #5 tablet
--- NOTE | 2020-10-16 12:34 | Progress Note ---
Assessment and Plan Cultures: Blood culture 10/09/2020 gram-positive cocci 1 out of 4 bottles: Coag negative staph SARS CoV2 PCR positive Blood culture 10/13/2020 no growth Assessment: 60 years old female with history of asthma, admitted on secondary to 3-day history of chest tightness, cough with yellowish sputum: #Asthma exacerbation #Severe COVID-19 pneumonia: CTA showed no pulmonary embolism. D-dimer remains normal. #Hypoxia: on nasal cannula oxygen. #CoNS in blood cultures: Likely contaminant. Recommendations: -Completed remdesivir -Complete remainder of steroids -Home oxygen evaluation prior to discharge ID will sign off. Please call with questions. Enrico Tilley MD, FACP [facility] ([facility] O: [phone] F: [phone] Subjective Date of service: 10/16/20 Principal diagnosis: Rule out COVID-19 Interval history: Afebrile. Stable on oxygen by nasal cannula at 2 L/min. Objective - Exam Narrative Exam: Physical Exam (reviewed in chart to minimize risk of transmission) Constitutional: deferred Head, Ears, Nose: deferred Eyes: deferred Neck: deferred Oral: deferred Cardiovascular: deferred Respiratory: deferred GI: deferred Musculoskeletal: deferred Skin: deferred Hem/Lymphatic: deferred Psych: deferred Neurological: deferred - Constitutional Vitals: Vital Signs Temp Pulse Resp BP Pulse Ox 98.2 F 66 20 100/62 96 10/16/20 11:28 10/16/20 11:28 10/16/20 11:28 10/16/20 11:28 10/16/20 11:28 Temperature -Last 24 Hours Temperature 98.2 F Temperature 97.7 F Temperature 98.8 F Temperature 97.7 F - Labs CBC & Chem 7: 10/11/20 04:58 10/11/20 04:58
[2020-10-16] MEDS: ENOXAPARIN 40 MG/0.4 ML INJ SUB-Q SCH (21:25)
[2020-10-17 04:00] VITALS: BP 109/58
[2020-10-17] MEDS: IPRATROPIUM/ALBUTEROL SULFATE 3 ML AMPUL.NEB IH SCH ×2 (08:05→13:42)
[2020-10-17] MEDS: guaiFENesin ER 600 MG TAB PO SCH (09:31)
[2020-10-17] MEDS: methylPREDNISolone Sod Succinate 40 MG/1 ML INJ IV SCH (09:31)
[2020-10-17] MEDS: CETIRIZINE 10 MG TAB PO SCH (09:31)
== END 2020-10-17 15:36 | disposition home or self-care (01) | DRG 871 ==
LOC: ED 18:28 → 3A 10-10 03:23
PROVIDERS: ADMIT Internal Medicine Geriatric Medicine; ATTEND Hospitalist
PROC: XW033E5 Introduction of Remdesivir Anti-infective into Peripheral Vein, Percutaneous Approach, New Technology Group 5 (ICD-10-PCS; principal; 2020-10-10)
DX: A41.89 Other specified sepsis (principal); U07.1 COVID-19; J12.89 Other viral pneumonia; J96.01 Acute respiratory failure with hypoxia; J45.901 Unspecified asthma with (acute) exacerbation; E66.9 Obesity, unspecified; J20.9 Acute bronchitis, unspecified; Z87.891 Personal history of nicotine dependence; Z79.899 Other long term (current) drug therapy; Z68.34 Body mass index [BMI] 34.0-34.9, adult; Z79.01 Long term (current) use of anticoagulants
CPT/HCPCS: 36415; 71046; 71275; 80048; 80053; 80076; 82140; 82728; 82947; 83520; 83615; 83880; 84145; 84484; 85025; 85379; 85610; 86140; 87040; 93005; 94640; 94760; G0378; J0456; J0696; J1100; J1650; J1940; J2920; J2930; J3475; J7050; Q9967; U0003